=== PATIENT | female | born 1950 | race Caucasian/White ===

== ENCOUNTER 2023-04-25 13:49 | Inpatient (IN) | payer MEDICARE, SELFPAY ==
[2023-04-25 13:50] VITALS: BP 98/85; PULSE 87; RESP 18; TEMP 37.4; O2SAT 91; BMI 30.6
[2023-04-25 14:21] LABS: Absolute Lymphocyte Count 0.53 X10^3/uL (0.83-4.51); Absolute Neutrophil Count 10.1 X10^3/uL (2.0-7.7); Basophil# 0.02 X10^3/uL; Basophil% 0.2 % (0-1); Eosinophil# 0.09 X10^3/uL; Eosinophils% 0.8 % (0-5); Hematocrit 34.3 % (37-47); Hemoglobin 12.3 g/dL (12.0-15.0); Lymphocyte # 0.53 X10^3/ul (0.83-4.51); Lymphocyte % 4.7 % (19-41); Mean Corp Hgb Conc 35.9 g/dL (32-36); Mean Corpuscular Hgb 30.7 pg (27.0-32.0); Mean Corpuscular Volume 85.5 fL (81-99); Monocyte# 0.48 X10^3/uL; Monocyte% 4.3 % (0-10); NRBC Flagged by Analyzer 0 % (0-5); Neutrophil # 10.13 X10^3/uL (2.7-7.7); Neutrophil % 89.8 % (47-70); POSITIVE DIFFERENTIAL YES; Platelet Count 222 K/mm3 (150-450); RBC Distribution Width CV 14.8 % (11.6-14.6); RBC Distribution Width SD 46.2 fl (35.1-43.9); Red Blood Count 4.01 M/mm3 (4.2-5.4); White Blood Count 11.3 K/mm3 (4.4-11.0)
[2023-04-25 14:23] LABS: Differential Indicated SCAN CRITERIA MET
--- NOTE | 2023-04-25 14:23 | ED.VIS.GI ---
HPI HPI - GI History of Present Illness Chief Complaint: Abd Pain Narrative Narrative: 72-year-old female presenting with nausea, vomiting, abdominal pain. She states that 3 days ago she had a very fatty lobster bisque soup in the evening. She woke up the next day feeling nauseous and had some abdominal pain which she thought was more like her GERD. She does also note that she has had right upper quadrant pain. Patient states that yesterday she ate mostly fruit. She ate nothing fatty. She had nausea throughout the day. Today she is eaten nothing and continues to have pain. No diarrhea, constipation. No urinary or vaginal complaints. No fevers. [facility] Medical History (Updated 04/25/23 @ 14:32 by Jennifer Clark) Diabetes Hypertension Home Medications Lisinopril/Hydrochlorothiazide [Zestoretic 20/25 Tablet] 1 tab PO DAILY 10/27/13 [History Last Taken 10/26/13 08:00] pantoprazole 40 mg tablet,delayed release 40 mg PO BID ##60 10/29/13 [Rx Last Taken Unknown] metformin 500 mg tablet 500 mg PO BID #270 tabs 11/01/17 [Rx Last Taken Unknown] glimepiride 2 mg tablet 4 mg PO DAILY #180 tabs 01/21/18 [Rx Last Taken Unknown] amlodipine 2.5 mg tablet 2.5 mg PO DAILY 04/25/23 [History Last Taken Unknown] atorvastatin 10 mg tablet 10 mg PO DAILY 04/25/23 [History Last Taken Unknown] Allergy/AdvReac Type Severity Reaction Status Date / Time No Known Allergies Allergy Verified 04/25/23 13:50 Social History Smoking Status: Never smoker ROS [facility] ED Constitutional Constitutional ED: Denies chills, fever(s) or sweats Eyes Eyes: Denies blurry vision or change in vision ENT ENT ED: Denies ear pain or sore throat Cardiovascular Cardiovascular: Denies chest pain, palpitations or racing heartbeat Respiratory/Chest Respiratory/Chest: Denies cough, dyspnea or sputum Gastrointestinal Gastrointestinal: Reports abdominal pain, nausea and vomiting; Denies constipation or diarrhea Genitourinary Genitourinary ED: Denies dysuria, hematuria or urinary frequency Musculoskeletal Musculoskeletal: Denies arthralgias, myalgias or neck pain Integumentary Denies abscess, Abrasions or rash Neurologic Neurologic: Denies headache(s), paresthesias or weakness Psychiatric Psychiatric: Denies anxiety, depression, suicidal ideation or suicidal thoughts Endocrine Endocrinology: Denies polydipsia or polyuria EXAM Physical Exam Const Vital Signs: 04/25/23 13:50 04/25/23 15:49 04/25/23 17:16 Temperature 99.3 F H 98.1 F Temperature Source Temporal Oral Pulse Rate 87 91 Respiratory Rate 18 16 16 Blood Pressure 98/85 H 139/57 H 127/44 H Blood Pressure Mean 89 84 71 Pulse Ox 91 93 Oxygen Delivery Method Room Air Room Air Positive well nourished General Appearance ED: NAD HEENT Reports moist mucous membranes normocephalic and atraumatic Eyes PERRL and EOMs intact bilaterally Cardio regular rate and regular rhythm GI Palpation: tender RLQ Neuro CN's II-XII intact bilaterally, moves all extremities and no sensory deficits noted Sensorium / Orientation: alert, oriented to person, oriented to place and oriented to time Psych mental status grossly normal and thought process normal Skin no wounds MDM MDM MDM Narrative Medical decision making narrative: 72-year-old female with epigastric and right upper quadrant pain. Initially she indicated me that she had some left lower quadrant and right lower quadrant pain, however on examination she does not have any tenderness here. She has tenderness over the right upper quadrant has a positive Vallecillo sign. Differential includes but is not limited to GERD, gastritis, peptic ulcer disease, acute cholecystitis, acute cholelithiasis, diverticulitis, pancreatitis, perforated bowel, viral etiology, food poisoning. CBC to assess white blood cell count, hemoglobin, platelets, differential. CMP to assess liver function, renal function, electrolytes, glucose, anion gap. Lipase to assess for pancreatitis. Urinalysis to assess for UTI. Clinically I am concerned for her gallbladder. We will get a right upper quadrant ultrasound. Patient medicated with morphine, Zofran, 1 L of normal saline. CBC shows a slight leukocytosis at 11.3. There is a left shift of 89.8. Hemoglobin macular stable. Platelets are normal. Creatinine slightly elevated 1.29. Patient was given IV fluids. Electrolytes within normal limits.LFTs show total bilirubin of 4.3, direct bilirubin 2.92, indirect bilirubin 1.4, AST 118, ALT 64, alkaline phosphatase normal at 96. CRP elevated minimally at 8.11. ESR 8. Gallbladder ultrasound shows gallstones distended gallbladder and slight pericholecystic edema.Distended gallbladder with gallstones and slight pericholecystic edema. There is also mild gallbladder wall thickening.Discussed case with Dr. Hankins who recommended speaking to Dr. Moscoso given that she thought he might need to do ERCP. After speaking with him he recommended an MRCP and will see her in consult. Patient will be covered with Zosyn. Discussed with Dr. Yi for admission. Impression: 1. Cholelithiasis 2. Transaminitis 3. Nausea ? Lab Data Labs: Laboratory Results - last 24 hr 04/25/23 04/25/23 04/25/23 14:15 14:15 14:15 WBC 11.3 H RBC 4.01 L Hgb 12.3 Hct 34.3 L MCV 85.5 MCH 30.7 MCHC 35.9 RDW Std Deviation 46.2 H RDW Coeff of [place] 14.8 H Plt Count 222 MPV 9.0 Immature Gran % (Auto) 0.200 Neut % (Auto) 89.8 H Lymph % (Auto) 4.7 L [place] % (Auto) 4.3 Eos % (Auto) 0.8 Baso % (Auto) 0.2 Absolute Neuts (auto) 10.1 H Absolute Lymphs (auto) 0.53 L Nucleated RBC % 0 ESR Sodium 137 Potassium 3.8 Chloride 101 Carbon Dioxide 27.0 Anion Gap 9 BUN 16 Creatinine 1.29 H Estim Creat Clear Calc 32.61 Est GFR (MDRD) Af Amer 52 L Est GFR (MDRD) Non-Af 43 L BUN/Creatinine Ratio 12.4 Glucose 264 H Calcium 8.9 Total Bilirubin 4.40 H 4.30 H Direct Bilirubin 2.92 H Indirect Bilirubin 1.40 H AST 118 H ALT 64 H Alkaline Phosphatase 96 C-React Prot Ext Range 8.11 H Total Protein 7.4 Albumin 4.0 Globulin 3.4 Albumin/Globulin Ratio 1.2 Lipase 54 Urine Color Urine Clarity Urine pH Ur Specific [place] Urine Protein Urine Glucose (UA) Urine Ketones Urine Occult Blood Urine Nitrite Urine Bilirubin Urine Urobilinogen Ur Leukocyte Esterase Urine RBC Urine WBC Ur Squamous Epith Cells Urine Bacteria Urine Mucus 04/25/23 04/25/23 14:15 15:46 WBC RBC Hgb Hct MCV MCH MCHC RDW Std Deviation RDW Coeff of [place] Plt Count MPV Immature Gran % (Auto) Neut % (Auto) Lymph % (Auto) [place] % (Auto) Eos % (Auto) Baso % (Auto) Absolute Neuts (auto) Absolute Lymphs (auto) Nucleated RBC % ESR 8 Sodium Potassium Chloride Carbon Dioxide Anion Gap BUN Creatinine Estim Creat Clear Calc Est GFR (MDRD) Af Amer Est GFR (MDRD) Non-Af BUN/Creatinine Ratio Glucose Calcium Total Bilirubin Direct Bilirubin Indirect Bilirubin AST ALT Alkaline Phosphatase C-React Prot Ext Range Total Protein Albumin Globulin Albumin/Globulin Ratio Lipase Urine Color Yellow Urine Clarity Sl. Cloudy Urine pH 6.0 Ur Specific [place] 1.015 Urine Protein 30 H Urine Glucose (UA) 250 H Urine Ketones 15 H Urine Occult Blood 50 H Urine Nitrite Negative Urine Bilirubin 1 H Urine Urobilinogen 8 H Ur Leukocyte Esterase 500 H Urine RBC 0-5 SEEN Urine WBC 10-25 SEEN Ur Squamous Epith Cells 0-5 SEEN Urine Bacteria 1+ Urine Mucus 0 SEEN Radiography Diagnostic Testing: Clinical Impression(s) from Imaging Studies Gallbladder Ultrasound 04/25/23 14:45 IMPRESSION: Distended gallbladder with gallstones and slight pericholecystic edema. Mild gallbladder wall thickening. No localized tenderness. Electronically Signed: Oliverio Melvin MD at 17:23 EDT , Discharge Plan Triage Chief Complaint: Abd Pain ED Provider: Junior Contreras Dx/Rx/DC Orders Prescriptions: No Action Lisinopril/Hydrochlorothiazide [Zestoretic 20/25 Tablet] 1 TABLET tablet 1 tab PO DAILY Label Comments: HYPERTENSION pantoprazole 40 MG tablet 40 mg PO BID Qty: 60 0RF atorvastatin 10 mg tablet 10 mg PO DAILY Label Comments: TAKE 1 TABLET BY MOUTH ONCE DAILY AT BEDTIME FOR CHOLESTEROL LOWERING. amlodipine 2.5 mg tablet 2.5 mg PO DAILY Label Comments: TAKE 1 TABLET BY MOUTH ONCE DAILY metformin 500 mg tablet 500 mg PO BID Qty: 270 3RF Rx Instructions: take 2 tabs with breakfast, 1 tab with supper glimepiride 2 MG tablet 4 mg PO DAILY Qty: 180 4RF Primary Care Provider: Dejon Lara Referrals: Dejon Lara DO [Primary Care Provider] -
[2023-04-25] MEDS: Morphine 4 MG/ML Syringe IV (14:28)
[2023-04-25] MEDS: 0.9% Normal Saline 1,000 ML 999 ML IV (14:28)
[2023-04-25] MEDS: Ondansetron 4 MG/2 ML Vial IV (14:29)
[2023-04-25 14:39] LABS: ALB/GLOB Ratio 1.2 RATIO (0.9-2.4); AST(SGOT) 118 U/L (15-37); Alanine Aminotransfer ALT/SGPT 64 U/L (13-56); Alkaline Phosphatase 96 U/L (45-117); Anion Gap 9 (5-15); BUN 16 mg/dL (7-18); BUN/Creat Ratio 12.4 RATIO (10-20); Calcium,Total 8.9 mg/dL (8.5-10.1); Chloride 101 mmol/L (98-107); Creatinine, Serum 1.29 mg/dL (0.55-1.02); EST Glomerular Filtration Rate 43 mL/min (>60); Est Glom Filt Rate - Afr Amer 52 mL/min (>60); Estimated Creatinine Clearance 32.61 ml/min; Globulin 3.4 g/dL (2.2-4.2); Glucose 264 mg/dL (74-106); Lipase 54 U/L (13-75); Potassium 3.8 mmol/L (3.5-5.1); Protein, Total 7.4 g/dL (6.4-8.2); Sodium Level 137 mmol/L (136-145)
--- NOTE | 2023-04-25 14:45 | US_ITS ---
STUDY: ABDOMINAL ULTRASOUND - RIGHT UPPER QUADRANT REASON FOR VISIT: Female, 72 years old ruq pain TECHNIQUE: Ultrasound evaluation of the right upper quadrant was performed with real-time and static hernandez-scale imaging. TECHNICAL QUALITY: Adequate. COMPARISON: 10/27/2013. FINDINGS: Liver: The liver measures 16.9 cm. There is increased echogenicity consistent with fatty infiltration. The bile ducts are within normal limits. There is hepatic color flow. The direction of portal flow is hepatopetal. There is no demonstrated mass lesion. Gallbladder: There is a markedly distended gallbladder. The gallbladder wall measures 3 mm. There is a negative sonographic Vallecillo''s sign. There is pericholecystic fluid. There are multiple echogenic structures within the gallbladder, consistent with multiple gallstones. Common Bile Duct (C.B.D.): The common bile duct measures 5.5 mm. Pancreas: Normal size of the head, body and tail of the pancreas. There is normal echogenicity of the pancreas. There is no demonstrated pancreatic mass or cyst. Right Kidney: Normal size of the right kidney. The right kidney measures 11.8 cm. Normal renal cortex. The right cortex measures 1.1 cm. There is a 1.4 cm cyst. There is no right hydronephrosis. US/Gallbladder IMPRESSION: Distended gallbladder with gallstones and slight pericholecystic edema. Mild gallbladder wall thickening. No localized tenderness. Electronically Signed: Oliverio Melvin MD at 17:23 EDT ,
[2023-04-25 15:49] VITALS: BP 139/57; RESP 16
[2023-04-25 15:54] LABS: Mucous, Urine 0 SEEN /hpf (<or=2+)
[2023-04-25 16:04] LABS: Color, Urine Yellow (Yellow); Glucose, Dipstick 250 mg/dl (Normal); Ketone-Dipstick 15 mg/dl (Negative); Leukocyte Esterase-Dipstick 500 /ul (Negative); Nitrite-Dipstick Negative (Negative); Occult Blood-Urine 50 /ul (Negative); Protein-Dipstick 30 mg/dl (Negative); Specific Gravity, Urine 1.015 (1.002-1.030); Urine Clarity Sl. Cloudy (Clear); Urine Urobilinogen 8 mg/dl (Normal)
[2023-04-25 16:10] LABS: Urine Bilirubin Dipstick 1 mg/dL (Negative)
[2023-04-25 16:12] LABS: Bacteria 1+ /hpf (None Seen); Red Blood Cells-Urine 0-5 SEEN /hpf (0-5); Squamous Epithelial Cells - UA 0-5 SEEN /hpf (5-10); White Blood Cells 10-25 SEEN /hpf (0-5)
[2023-04-25 17:16] VITALS: BP 127/44; PULSE 91; RESP 16; TEMP 36.7; O2SAT 93
[2023-04-25 18:17] LABS: Erythrocyte Sedimentation Rate 8 mm/hr (0-30)
[2023-04-25 18:19] LABS: Bilirubin, Direct 2.92 mg/dL (0.00-0.30); CRP 8.11 mg/L (0.0-3.0)
--- NOTE | 2023-04-25 18:34 | CON.PCM.GI_ITS ---
HPI Consult Data Date of Consult: 04/25/23 HPI Narrative Reason for Consultation: Abnormal LFTs HPI Narrative: MARU LEE, is a 72 F who presents with nausea, vomiting, abdominal pain.? She has a past story of hypertension, hyperlipidemia, diabetes with neuropathy and retinopath. She states that 3 days ago she had a very fatty lobster bisque soup in the evening.? She woke up the next day feeling nauseous and had some abdominal pain which she thought was more like her GERD.? She does also note that she has had right upper quadrant pain.? Patient states that yesterday she ate mostly fruit.? She ate nothing fatty.? She had nausea throughout the day.? Today she is eaten nothing and continues to have pain.? No diarrhea, constipation.? No urinary or vaginal complaints.? No fevers. She actually has lost weight due to inability to eat a full meal because she has been getting full faster. She denies any heartburn, chest pain, shortness of breath or esophageal dysphagia. Laboratory analysis in the ED displayed: WBC 11.3 H, , Total Bilirubin 4.40 H, AST 118 H, ALT 64 H, Alkaline Phosphatase 96, Total Protein 7.4, Albumin 4.0, Globulin 3.4, Albumin/Globulin Ratio 1.2, Lipase 54 04/25/23 14:15: Total Bilirubin 4.30 H, Direct Bilirubin 2.92 H, Indirect Bilirubin 1.40 H, C-React Prot Ext Range 8.11 H Ultrasound displayed: Distended gallbladder with gallstones and slight pericholecystic edema. Mild gallbladder wall thickening. No localized tenderness. [facility] Medical History (Updated 04/25/23 @ 18:[address] Urrutia Friend, DO) Diabetes Hypertension Home Medications Lisinopril/Hydrochlorothiazide [Zestoretic 20/25 Tablet] 1 tab PO DAILY 10/27/13 [History Last Taken 10/26/13 08:00] pantoprazole 40 mg tablet,delayed release 40 mg PO BID ##60 10/29/13 [Rx Last Taken Unknown] metformin 500 mg tablet 500 mg PO BID #270 tabs 11/01/17 [Rx Last Taken Unknown] glimepiride 2 mg tablet 4 mg PO DAILY #180 tabs 01/21/18 [Rx Last Taken Unknown] amlodipine 2.5 mg tablet 2.5 mg PO DAILY 04/25/23 [History Last Taken Unknown] atorvastatin 10 mg tablet 10 mg PO DAILY 04/25/23 [History Last Taken Unknown] Allergy/AdvReac Type Severity Reaction Status Date / Time No Known Allergies Allergy Verified 04/25/23 13:50 Social History Smoking Status: Never smoker alcohol intake: never ROS Review of Systems ROS Unobtainable: other Constitutional Constitutional: Denies fatigue, fever(s), poor appetite, weight gain or weight loss ENT HEENT: Denies mouth lesions Cardiovascular Cardiovascular: Denies abdominal bloating, abdominal edema or abdominal pain Respiratory/Chest Respiratory/Chest: Denies change in mental status, change in phlegm color, chest congestion or chest tightness Gastrointestinal Gastrointestinal: Denies belching, bloating, change in bowel habits, change in stool character, chewing difficulty, coffee ground emesis, constipation, cramping, diarrhea, dyspepsia, dysphagia, early satiety, excessive flatus, fecal incontinence, heartburn, hematemesis, hematochezia, hemorrhoids, loose stools, melena, nausea, odynophagia, rectal bleeding, tenesmus, vomiting or weight c hanges Genitourinary Genitourinary: Denies abdominal discomfort, burning urination or itching Musculoskeletal Musculoskeletal: Reports as per HPI; Denies muscle weakness or myalgias Integumentary Integumentary: Denies jaundice Neurologic Neurologic: Denies lack of coordination or weakness Psychiatric Psychiatric: Denies confusion, depression, memory loss, mood swings, paranoia or suicidal ideation Endocrine Endocrinology: Denies systems reviewed and no addt'l complaints, except as documented Hematologic/Lymphatic Hematologic/Lymphatic: Denies anemia, easy bleeding, easy bruising or lymphadenopathy Allergic/Immunologic Allergic/Immunologic: Denies systems reviewed and no addt'l complaints, except as documented Physical Exam Const alert, oriented x3, no apparent distress, healthy appearing and well nourished General Appearance: cooperative, comfortable, well kempt and well developed Orientation / Consciousness: awake and oriented to person HEENT Head and Scalp: normocephalic and atraumatic Face and Sinus: normal facial exam Mouth: oral and palatal mucosa normal Eyes General Eye: normal appearance of both eyes Neck full ROM Lymph Lymphatic: no lymphadenopathy noted Chest inspection of chest normal Resp normal respiratory effort and no use of accessory muscles Cardio regular rate and regular rhythm GI normal to inspection, nondistended, normoactive bowel sounds, soft to palpation, non-tender, non-distended and no masses Auscultation: normoactive bowel sounds Palpation: soft Percussion: normal to percussion Rectal Exam: visual inspection normal and normal sphincter tone no CVA tenderness Back/Spine no CVA tenderness and normal ROM Extremity normal to inspection Peripheral Pulses: Yes pulses 2+ throughout Skin no rashes or lesions noted General Skin Exam: no breakdown, elasticity normal and turgor normal Neuro oriented x3 Motor Exam: strength 5/5 throughout Psych mental status grossly normal Appearance: grossly normal Attitude: calm Activity / Motor Behavior: appropriate eye contact Speech: normal speech Thought Process: normal thought process Thought Content: normal thought content Attention / Concentration: attention grossly intact Memory / Cognition: memory grossly intact Insight: insight good Judgement: judgement good Lab / Micro Data Result Diagrams: 04/25/23 14:15 04/25/23 14:15 Labs: Laboratory Results - last 24 hr 04/25/23 14:15: WBC 11.3 H, RBC 4.01 L, Hgb 12.3, Hct 34.3 L, MCV 85.5, MCH 30.7, MCHC 35.9, RDW Std Deviation 46.2 H, RDW Coeff of [place] 14.8 H, Plt Count 222, MPV 9.0, Immature Gran % (Auto) 0.200, Neut % (Auto) 89.8 H, Lymph % (Auto) 4.7 L, [place] % (Auto) 4.3, Eos % (Auto) 0.8, Baso % (Auto) 0.2, Absolute Neuts (auto) 10.1 H, Absolute Lymphs (auto) 0.53 L, Nucleated RBC % 0 04/25/23 14:15: Sodium 137, Potassium 3.8, Chloride 101, Carbon Dioxide 27.0, Anion Gap 9, BUN 16, Creatinine 1.29 H, Estim Creat Clear Calc 32.61, Est GFR (MDRD) Af Amer 52 L, Est GFR (MDRD) Non-Af 43 L, BUN/Creatinine Ratio 12.4, Glucose 264 H, Calcium 8.9, Total Bilirubin 4.40 H, AST 118 H, ALT 64 H, Alkaline Phosphatase 96, Total Protein 7.4, Albumin 4.0, Globulin 3.4, Albumin/Globulin Ratio 1.2, Lipase 54 04/25/23 14:15: Total Bilirubin 4.30 H, Direct Bilirubin 2.92 H, Indirect Bilirubin 1.40 H, C-React Prot Ext Range 8.11 H 04/25/23 14:15: ESR 8 04/25/23 15:46: Urine Color Yellow, Urine Clarity Sl. Cloudy, Urine pH 6.0, Ur Specific [place] 1.015, Urine Protein 30 H, Urine Glucose (UA) 250 H, Urine Ketones 15 H, Urine Occult Blood 50 H, Urine Nitrite Negative, Urine Bilirubin 1 H, Urine Urobilinogen 8 H, Ur Leukocyte Esterase 500 H, Urine RBC 0-5 SEEN, Urine WBC 10-25 SEEN, Ur Squamous Epith Cells 0-5 SEEN, Urine Bacteria 1+, Urine Mucus 0 SEEN Radiology Impression Gallbladder Ultrasound 04/25/23 14:45 IMPRESSION: Distended gallbladder with gallstones and slight pericholecystic edema. Mild gallbladder wall thickening. No localized tenderness. Electronically Signed: Oliverio Melvin MD at 17:23 EDT , Assessment & Plan Assessment/Plan (1) Abdominal pain: PLAN: Differential diagnosis for abdominal pain does include cholecystitis given that the ultrasound did show gallbladder wall thickening and some mild pericholecystic fluid in the setting of persistent abdominal pain that last for over 12 hours. Also in the differential diagnosis would include gastroparesis because she has been getting full fast. Less likely is a possibility of sphincter of Oddi disorder due to the fact that her common bile duct diameter was only 5.5 mm and her alkaline phosphatase was normal. She is being seen by surgery and she will get an MRCP so we can have further evaluation of her hepatobiliary system. I do not think she needs an ERCP at this time (2) Elevated liver enzymes: PLAN: Differential diagnosis for elevated liver enzymes will be a local effect due to the closeness of the gallbladder to the liver itself. I am leaning more towards acute liver injury due to just to gallbladder being adjacent to the liver. Her alkaline phosphatase is normal. Of the etiology would be autoimmune hepatitis, less likely Jeane-Ricks virus or viral hepatitis. She is completely asymptomatic at this time with 1 dose of morphine and 1 dose of Zofran. Await the MRCP and I will check some autoimmune labs and viral labs. Charges/Coding Visit Charges Inpatient E&M: 90674 Init Hosp L3
--- NOTE | 2023-04-25 18:40 | HP.PCM.HOS_ITS ---
[facility] - General General Date of Service: 04/25/23 Chief Complaint: abdominal pain HPI Narrative MARU LEE, is a 72 F who presents with abdominal pain. Patient describes abdominal pain across her upper abdomen and lower chest. Had associated vomiting. Patient has had similar but less severe episodes in the past where she will have some abdominal pain and then she will throw up and feel better and then may recur again. This was different as did not improve after she vomited. Patient presented to the emergency room and had lab work that showed her total b ilirubin was 4.3, direct bilirubin 2.9, AST 118, ALT 64. Ultrasound of her abdomen showed distended gallbladder with gallstones and slight pericholecystic edema. Mild gallbladder wall thickening. No localized tenderness. Currently, since patient has been hospitalized she has been feeling fine. [facility] Medical History Diabetes Hypertension Home Medications Lisinopril/Hydrochlorothiazide [Zestoretic 20/25 Tablet] 1 tab PO DAILY 10/27/13 [History Last Taken 10/26/13 08:00] pantoprazole 40 mg tablet,delayed release 40 mg PO BID ##60 10/29/13 [Rx Last Taken Unknown] metformin 500 mg tablet 500 mg PO BID #270 tabs 11/01/17 [Rx Last Taken Unknown] glimepiride 2 mg tablet 4 mg PO DAILY #180 tabs 01/21/18 [Rx Last Taken Unknown] amlodipine 2.5 mg tablet 2.5 mg PO DAILY 04/25/23 [History Last Taken Unknown] atorvastatin 10 mg tablet 10 mg PO DAILY 04/25/23 [History Last Taken Unknown] Allergy/AdvReac Type Severity Reaction Status Date / Time No Known Allergies Allergy Verified 04/25/23 13:50 no significant family history Social History (Updated 04/25/23 @ 18:[address] Siddhartha Yi DO) Smoking Status: Never smoker alcohol intake: never ROS ROS Narrative Patient denies any jaundice nor icterus. All review of systems were negative except as mentioned above in the history of present illness and the other review of systems. Vital Signs Vital Signs Vital Signs: 04/25/23 13:50 04/25/23 15:49 04/25/23 17:16 Temperature 37.4 C H 36.7 C Temperature Source Temporal Oral Pulse Rate 87 91 Respiratory Rate 18 16 16 Blood Pressure 98/85 H 139/57 H 127/44 H Blood Pressure Mean 89 84 71 Pulse Ox 91 93 Oxygen Delivery Method Room Air Room Air Weight Weight: 78.471 kg Body Mass Index (BMI) 30.6 Physical Exam Const alert and no apparent distress HEENT normocephalic and head/scalp atraumatic Eyes conjunctivae normal Eyes Narrative: No icterus Neck no lymphadenopathy Resp normal respiratory effort, no retractions, no use of accessory muscles and clear to auscultation bilaterally Cardio regular rate, regular rhythm, S1 normal heart sound and S2 normal heart sound GI normal to inspection, nondistended, normoactive bowel sounds, soft to palpation, non-tender and non-distended GI Narrative: Negative Vallecillo sign Extremity normal to inspection Neuro oriented x3 and CN's II-XII intact bilaterally Psych affect normal Results Lab / Micro Data Attestation: I reviewed the patient's lab results. Result Diagrams: 04/25/23 14:15 04/25/23 14:15 Labs: Laboratory Results - last 24 hr 04/25/23 14:15: WBC 11.3 H, RBC 4.01 L, Hgb 12.3, Hct 34.3 L, MCV 85.5, MCH 30.7, MCHC 35.9, RDW Std Deviation 46.2 H, RDW Coeff of [place] 14.8 H, Plt Count 222, MPV 9.0, Immature Gran % (Auto) 0.200, Neut % (Auto) 89.8 H, Lymph % (Auto) 4.7 L, [place] % (Auto) 4.3, Eos % (Auto) 0.8, Baso % (Auto) 0.2, Absolute Neuts (auto) 10.1 H, Absolute Lymphs (auto) 0.53 L, Nucleated RBC % 0 04/25/23 14:15: Sodium 137, Potassium 3.8, Chloride 101, Carbon Dioxide 27.0, Anion Gap 9, BUN 16, Creatinine 1.29 H, Estim Creat Clear Calc 32.61, Est GFR (MDRD) Af Amer 52 L, Est GFR (MDRD) Non-Af 43 L, BUN/Creatinine Ratio 12.4, Glucose 264 H, Calcium 8.9, Total Bilirubin 4.40 H, AST 118 H, ALT 64 H, Alkaline Phosphatase 96, Total Protein 7.4, Albumin 4.0, Globulin 3.4, Albumin/Globulin Ratio 1.2, Lipase 54 04/25/23 14:15: Total Bilirubin 4.30 H, Direct Bilirubin 2.92 H, Indirect Bilirubin 1.40 H, C-React Prot Ext Range 8.11 H 04/25/23 14:15: ESR 8 04/25/23 15:46: Urine Color Yellow, Urine Clarity Sl. Cloudy, Urine pH 6.0, Ur Specific [place] 1.015, Urine Protein 30 H, Urine Glucose (UA) 250 H, Urine Ketones 15 H, Urine Occult Blood 50 H, Urine Nitrite Negative, Urine Bilirubin 1 H, Urine Urobilinogen 8 H, Ur Leukocyte Esterase 500 H, Urine RBC 0-5 SEEN, Urine WBC 10-25 SEEN, Ur Squamous Epith Cells 0-5 SEEN, Urine Bacteria 1+, Urine Mucus 0 SEEN Radiology Impression Gallbladder Ultrasound 04/25/23 14:45 IMPRESSION: Distended gallbladder with gallstones and slight pericholecystic edema. Mild gallbladder wall thickening. No localized tenderness. Electronically Signed: Oliverio Melvin MD at 17:23 EDT , Assessment & Plan Assessment/Plan (1) Cholecystitis: (2) Elevated liver enzymes: PLAN: Plan 1. Acute cholecystitis * Concerning based on the ultrasound. Currently patient is feeling fine right now * Will start Pipracil and/tazobactam * Monitor LFTs * Consult general surgery 2. Suspected resolved choledocholithiasis * Patient had severe abdominal pain as well as elevated bilirubin. I suspect patient may have passed a gallstone * MRCP has been ordered such * Consult gastroenterology 3. Diabetes mellitus type 2: * [id number] * Hold metformin and glimepiride * Sliding-scale insulin for now 4. Hypertension: * Stable * Continue with amlodipine and lisinopril/HCTZ 5. GERD * Patient had some similar but less severe bouts of abdominal pain with vomiting. Unclear if this is related with GERD or not. * Continue PPI 6. VTE prophylaxis with SCDs.
[2023-04-25 18:41] VITALS: BP 100/47; PULSE 88; RESP 16; TEMP 36.9; O2SAT 98
[2023-04-25 19:22] VITALS: BMI 30.6
--- NOTE | 2023-04-25 19:30 | MRI_ITS ---
STUDY: MR CHOLANGIOPANCREATOGRAPHY (MRCP) REASON FOR EXAM: Female, 72 years old. Hyperbilirubinemia, upper abdominal pain TECHNIQUE: Standard MRCP technique was utilized. Three-dimensional reconstruction images performed of the biliary system at an independent workstation and reviewed at time of dictation. COMPARISON: Ultrasound 04/25/2023 FINDINGS: MRCP: Gall Bladder: Slight gallbladder wall thickening with multiple gallstones. There is minimal pericholecystic fluid as seen on ultrasound from yesterday. Cystic duct: Normal with no demonstrated fixed filling defect. Intrahepatic ducts: Mild intrahepatic bile duct dilation affecting the right more than left bile ducts. Common hepatic duct: Normal with no demonstrated fixed filling defect, dilation or stricture. Common hepatic duct measures 8.1 mm. Common bile duct: Round filling defect in the lower common duct measures 10.4 mm on image 15 of series 8, 1.9 cm above the ampulla. Common duct measures 12.8 mm. Pancreatic duct: Normal with no demonstrated fixed filling defect, dilation or stricture. MRI/MRCP Abdomen without Contrast IMPRESSION: 1. Choledocholithiasis of the lower common duct. Extrahepatic more than intrahepatic bile duct dilation. 2. Cholelithiasis with slight gallbladder wall thickening and pericholecystic fluid. Electronically Signed: Roney Harper (Brooks), at 10:37 EDT ,
[2023-04-25 19:45] VITALS: BP 122/56; PULSE 86; RESP 16; TEMP 36.8; O2SAT 100
[2023-04-25] MEDS: 0.9% Normal Saline 1,000 ML 125 ML IV (20:10)
[2023-04-25] MEDS: MELATONIN 3 MG TABLET PO (21:51)
[2023-04-25] MEDS: Pantoprazole Sodium 40 MG Tablet PO (21:51)
[2023-04-25] MEDS: Acetaminophen 500 MG Tablet 1000 MG PO (21:51)
[2023-04-25 22:13] LABS: Bedside Glucose 232 mg/dL (74-106)
[2023-04-25] MEDS: Insulin Lispro 100 UNIT/ML INSULN.PEN SC (22:41)
--- NOTE | 2023-04-25 22:55 | CON.PCM.SX_ITS ---
Assessment & Plan Assessment/Plan (1) Elevated liver enzymes: (2) Acute cholecystitis: PLAN: Plan Await MRCP results. If no evidence of choledocho- will proceed with lap tammy tomorrow. Reviewed the anatomy with the patient and discussed the procedure: laparoscopic cholecystectomy with cholangiograms, possible open. Review risks including but not limited to bleeding, infection, hernia, bile leak, retained gallstones requiring another procedure ERCP- Endoscopic Retrograde Cholangiopancreatography, injury to another organ (bile ducts, common bile duct, small bowel, etc.) and conversion to an open procedure. All questions were answered. Jess Hankins M.D. Pager: [phone] [facility] [address] [place] [address], Outpatient [place], [address] [place] [address] Office: [phone] HPI Consult Data Date of Consult: 04/26/23 HPI Narrative Reason for Consultation: cholelithiasis and cholecystitis HPI Narrative: MARU LEE, is a 72 F who presents to ER due to Ruq/epigastric pain starting this AM- pt state it was after eating lobster bisque soap unsure what time or how long after eating. US showed wall 3mm, pericholecystic fluid, cholelithiasis, neg soriano's. Pt denies hx of ruq pain after eating. Patient currently denies any abdominal pain. Pt bili was elevated with AST/ALT, but n ormal alk phos. GI has seen pt and ordered MRCP. Patient denies any prolonged alcohol use states she only occasionally has a glass of wine every several months. [facility] Medical History Diabetes Hypertension Home Medications Lisinopril/Hydrochlorothiazide [Zestoretic 20/25 Tablet] 1 tab PO DAILY 10/27/13 [History Last Taken 10/26/13 08:00] pantoprazole 40 mg tablet,delayed release 40 mg PO BID ##60 10/29/13 [Rx Last Taken Unknown] metformin 500 mg tablet 500 mg PO BID #270 tabs 11/01/17 [Rx Last Taken Unknown] glimepiride 2 mg tablet 4 mg PO DAILY #180 tabs 01/21/18 [Rx Last Taken Unknown] amlodipine 2.5 mg tablet 2.5 mg PO DAILY 04/25/23 [History Last Taken Unknown] atorvastatin 10 mg tablet 10 mg PO DAILY 04/25/23 [History Last Taken Unknown] Allergy/AdvReac Type Severity Reaction Status Date / Time No Known Allergies Allergy Verified 04/25/23 13:50 Family History no significant family his Social History (Updated 04/25/23 @ 18:[address] Siddhartha Yi, DO) Smoking Status: Never smoker alcohol intake: never ROS Constitutional Constitutional: Denies fever(s) Eyes Eyes: Denies loss of central vision ENT HEENT: Denies dysphagia Cardiovascular Cardiovascular: Denies dyspnea or palpitations Respiratory/Chest Respiratory/Chest: Denies productive cough Gastrointestinal Gastrointestinal: Reports abdominal pain and nausea; Denies constipation Genitourinary Genitourinary: Denies dysuria Musculoskeletal Musculoskeletal: Denies joint swelling Integumentary Integumentary: Denies rash Neurologic Neurologic: Denies tingling Hematologic/Lymphatic Hematologic/Lymphatic: Denies easy bleeding Physical Exam Const alert, oriented x3 and no apparent distress HEENT normocephalic and head/scalp atraumatic Resp normal respiratory effort Cardio regular rate GI soft to palpation; Negative for non-distended Palpation: tender RUQ (Mild on deep palpation, no peritoneal signs); Negative for guarding Extremity no clubbing, cyanosis or edema Neuro CN's II-XII intact bilaterally Psych mental status grossly normal Lab / Micro Data Result Diagrams: 04/26/23 05:25 04/26/23 05:25 Labs: Laboratory Results - last 24 hr 04/25/23 14:15: WBC 11.3 H, RBC 4.01 L, Hgb 12.3, Hct 34.3 L, MCV 85.5, MCH 30.7, MCHC 35.9, RDW Std Deviation 46.2 H, RDW Coeff of [place] 14.8 H, Plt Count 222, MPV 9.0, Immature Gran % (Auto) 0.200, Neut % (Auto) 89.8 H, Lymph % (Auto) 4.7 L, [place] % (Auto) 4.3, Eos % (Auto) 0.8, Baso % (Auto) 0.2, Absolute Neuts (auto) 10.1 H, Absolute Lymphs (auto) 0.53 L, Nucleated RBC % 0 04/25/23 14:15: Sodium 137, Potassium 3.8, Chloride 101, Carbon Dioxide 27.0, Anion Gap 9, BUN 16, Creatinine 1.29 H, Estim Creat Clear Calc 32.61, Est GFR (MDRD) Af Amer 52 L, Est GFR (MDRD) Non-Af 43 L, BUN/Creatinine Ratio 12.4, Glucose 264 H, Calcium 8.9, Total Bilirubin 4.40 H, AST 118 H, ALT 64 H, Alkaline Phosphatase 96, Total Protein 7.4, Albumin 4.0, Globulin 3.4, Albumin/Globulin Ratio 1.2, Lipase 54 04/25/23 14:15: Total Bilirubin 4.30 H, Direct Bilirubin 2.92 H, Indirect Bilirubin 1.40 H, C-React Prot Ext Range 8.11 H 04/25/23 14:15: ESR 8 04/25/23 15:46: Urine Color Yellow, Urine Clarity Sl. Cloudy, Urine pH 6.0, Ur Specific [place] 1.015, Urine Protein 30 H, Urine Glucose (UA) 250 H, Urine Ketones 15 H, Urine Occult Blood 50 H, Urine Nitrite Negative, Urine Bilirubin 1 H, Urine Urobilinogen 8 H, Ur Leukocyte Esterase 500 H, Urine RBC 0-5 SEEN, Urine WBC 10-25 SEEN, Ur Squamous Epith Cells 0-5 SEEN, Urine Bacteria 1+, Urine Mucus 0 SEEN 04/25/23 21:53: POC Glucose 232 H Radiology Impression Gallbladder Ultrasound 04/25/23 14:45 IMPRESSION: Distended gallbladder with gallstones and slight pericholecystic edema. Mild gallbladder wall thickening. No localized tenderness. Electronically Signed: Oliverio Melvin MD at 17:23 EDT , Charges/Coding Visit Charges Inpatient E&M: 81923 Init Hosp L3
[2023-04-26] VITALS (9 sets, daily range): BP systolic 116–157; BP diastolic 48–72; PULSE 72–103; RESP 16–20; TEMP 36.2–37.1; O2SAT 97–100; BMI 30.6
[2023-04-26] MEDS: 0.9% Normal Saline 1,000 ML 125 ML IV ×2 (03:56→13:30)
[2023-04-26 05:55] LABS: Absolute Lymphocyte Count 0.54 X10^3/uL (0.83-4.51); Absolute Neutrophil Count 5.5 X10^3/uL (2.0-7.7); Basophil# 0.02 X10^3/uL; Basophil% 0.3 % (0-1); Eosinophil# 0.06 X10^3/uL; Eosinophils% 0.9 % (0-5); Hematocrit 28.3 % (37-47); Hemoglobin 9.8 g/dL (12.0-15.0); Lymphocyte # 0.54 X10^3/ul (0.83-4.51); Lymphocyte % 8.1 % (19-41); Mean Corp Hgb Conc 34.6 g/dL (32-36); Mean Corpuscular Hgb 30.8 pg (27.0-32.0); Monocyte# 0.53 X10^3/uL; NRBC Flagged by Analyzer 0 % (0-5); Neutrophil # 5.46 X10^3/uL (2.7-7.7); Neutrophil % 82.4 % (47-70); POSITIVE DIFFERENTIAL YES; Platelet Count 186 K/mm3 (150-450); RBC Distribution Width CV 14.9 % (11.6-14.6); RBC Distribution Width SD 47.8 fl (35.1-43.9); Red Blood Count 3.18 M/mm3 (4.2-5.4); White Blood Count 6.6 K/mm3 (4.4-11.0)
[2023-04-26 06:04] LABS: Differential Indicated SCAN CRITERIA MET
[2023-04-26] MEDS: Acetaminophen 500 MG Tablet 1000 MG PO ×2 (06:07→20:53)
[2023-04-26 06:24] LABS: Bedside Glucose 116 mg/dL (74-106)
[2023-04-26 06:26] LABS: Differential Comment SCANNED
[2023-04-26 06:33] LABS: ALB/GLOB Ratio 1.1 RATIO (0.9-2.4); AST(SGOT) 209 U/L (15-37); Alanine Aminotransfer ALT/SGPT 165 U/L (13-56); Alkaline Phosphatase 83 U/L (45-117); Anion Gap 6 (5-15); BUN 18 mg/dL (7-18); BUN/Creat Ratio 11.8 RATIO (10-20); Calcium,Total 8.1 mg/dL (8.5-10.1); Chloride 107 mmol/L (98-107); Creatinine, Serum 1.53 mg/dL (0.55-1.02); EST Glomerular Filtration Rate 35 mL/min (>60); Est Glom Filt Rate - Afr Amer 43 mL/min (>60); Estimated Creatinine Clearance 27.49 ml/min; Globulin 2.8 g/dL (2.2-4.2); Glucose 124 mg/dL (74-106); Potassium 3.4 mmol/L (3.5-5.1); Protein, Total 5.8 g/dL (6.4-8.2); Sodium Level 141 mmol/L (136-145)
--- NOTE | 2023-04-26 07:24 | PCM.PN.HOSP ---
Reason for Visit Reason for Visit: Abdominal pain Subjective Subjective Mrs. Woodward is a 72-year-old white female who presented to the emergency department it was prehospital on 04/25/2023 with a chief complaint of abdominal pain. She reported the pain was in her upper abdomen and lower chest. She had associated vomiting and has had previous similar episodes that had been less severe in the past. Upon presentation emergency department her total bili was 4.3 with a direct bilirubin of 2.9, AST 118 and ALT 64. Ultrasound of her abdomen showed distended gallbladder with gallstones and slight pericholecystic fluid/edema with mild gallbladder wall thickening. GI and general surgery have been consulted. MRCP is pending and if no evidence of choledocholithiasis the plan will be for lap cholecystectomy tomorrow on 04/27/2023. If it is positive she may require an ERCP prior to lap tammy. Patient states she is completely pain-free at this time and not having any nausea or vomiting. Able to press on her abdomen without any pain. Awaiting MRCP this morning to make decisions with ongoing plan of care. Objective Data Objective Data Vital Signs: Vital Signs Temp Pulse Resp BP Pulse Ox O2 Del Method 97.7 F L 78 16 119/48 L 97 Room Air 04/26/23 03:14 04/26/23 03:14 04/26/23 03:14 04/26/23 03:14 04/26/23 03:14 04/26/23 03:14 Oxygen Delivery Method Room Air Weight: 78.471 kg Body Mass Index (BMI) 30.6 Intake & Output: Intake and Output for Last 24 Hours 04/24/23 04/25/23 04/26/23 23:59 23:59 23:59 Intake Total 1050 / 1050 970.83 / 970.83 Balance 1050 / 1050 970.83 / 970.83 Lab / Micro Data Result Diagrams: 04/26/23 05:25 04/26/23 05:25 Labs: Laboratory Results - last 24 hr 04/25/23 14:15: WBC 11.3 H, RBC 4.01 L, Hgb 12.3, Hct 34.3 L, MCV 85.5, MCH 30.7, MCHC 35.9, RDW Std Deviation 46.2 H, RDW Coeff of [place] 14.8 H, Plt Count 222, MPV 9.0, Immature Gran % (Auto) 0.200, Neut % (Auto) 89.8 H, Lymph % (Auto) 4.7 L, [place] % (Auto) 4.3, Eos % (Auto) 0.8, Baso % (Auto) 0.2, Absolute Neuts (auto) 10.1 H, Absolute Lymphs (auto) 0.53 L, Nucleated RBC % 0 04/25/23 14:15: Sodium 137, Potassium 3.8, Chloride 101, Carbon Dioxide 27.0, Anion Gap 9, BUN 16, Creatinine 1.29 H, Estim Creat Clear Calc 32.61, Est GFR (MDRD) Af Amer 52 L, Est GFR (MDRD) Non-Af 43 L, BUN/Creatinine Ratio 12.4, Glucose 264 H, Calcium 8.9, Total Bilirubin 4.40 H, AST 118 H, ALT 64 H, Alkaline Phosphatase 96, Total Protein 7.4, Albumin 4.0, Globulin 3.4, Albumin/Globulin Ratio 1.2, Lipase 54 04/25/23 14:15: Total Bilirubin 4.30 H, Direct Bilirubin 2.92 H, Indirect Bilirubin 1.40 H, C-React Prot Ext Range 8.11 H 04/25/23 14:15: ESR 8 04/25/23 15:46: Urine Color Yellow, Urine Clarity Sl. Cloudy, Urine pH 6.0, Ur Specific [place] 1.015, Urine Protein 30 H, Urine Glucose (UA) 250 H, Urine Ketones 15 H, Urine Occult Blood 50 H, Urine Nitrite Negative, Urine Bilirubin 1 H, Urine Urobilinogen 8 H, Ur Leukocyte Esterase 500 H, Urine RBC 0-5 SEEN, Urine WBC 10-25 SEEN, Ur Squamous Epith Cells 0-5 SEEN, Urine Bacteria 1+, Urine Mucus 0 SEEN 04/25/23 21:53: POC Glucose 232 H 04/26/23 05:25: WBC 6.6, RBC 3.18 L, Hgb 9.8 L, Hct 28.3 L, MCV 89.0, MCH 30.8, MCHC 34.6, RDW Std Deviation 47.8 H, RDW Coeff of [place] 14.9 H, Plt Count 186, MPV 9.0, Immature Gran % (Auto) 0.300, Neut % (Auto) 82.4 H, Lymph % (Auto) 8.1 L, [place] % (Auto) 8.0, Eos % (Auto) 0.9, Baso % (Auto) 0.3, Absolute Neuts (auto) 5.5, Absolute Lymphs (auto) 0.54 L, Nucleated RBC % 0, Differential Comment SCANNED 04/26/23 05:25: Sodium 141, Potassium 3.4 L, Chloride 107, Carbon Dioxide 28.0, Anion Gap 6, BUN 18, Creatinine 1.53 H, Estim Creat Clear Calc 27.49, Est GFR (MDRD) Af Amer 43 L, Est GFR (MDRD) Non-Af 35 L, BUN/Creatinine Ratio 11.8, Glucose 124 H, Calcium 8.1 L, Total Bilirubin 6.10 H, AST 209 H, ALT 165 H, Alkaline Phosphatase 83, Total Protein 5.8 L, Albumin 3.0 L, Globulin 2.8, Albumin/Globulin Ratio 1.1 04/26/23 06:05: POC Glucose 116 H Radiography Diagnostic Testing: Radiology Impression Gallbladder Ultrasound 04/25/23 14:45 IMPRESSION: Distended gallbladder with gallstones and slight pericholecystic edema. Mild gallbladder wall thickening. No localized tenderness. Electronically Signed: Oliverio Melvin MD at 17:23 EDT , Physical Exam Const alert, oriented x3, no apparent distress and well nourished Constitutional Narrative: Older, obese, white female, lying in bed, appears comfortable, watching television, nontoxic HEENT head/scalp atraumatic and moist oral mucous membranes HEENT Narrative: Mallampati 3, no thrush Head and Scalp: normocephalic Resp normal respiratory effort, no retractions, no use of accessory muscles and clear to auscultation bilaterally Auscultation: Negative for rales, rhonchi or wheezes Cardio regular rate, regular rhythm, S1 normal heart sound, S2 normal heart sound, no murmurs, no rub, no gallops and no clicks GI normal to inspection, nondistended, normoactive bowel sounds, soft to palpation and non-tender Extremity no clubbing, cyanosis or edema Extremity Narrative: 2+ pedal pulses Neuro oriented x3, moves all extremities and no focal motor deficits Speech: speech normal Psych affect normal Psych Narrative: Very pleasant, appropriate Assessment & Plan Assessment/Plan (1) Acute cholecystitis: (2) Elevated liver enzymes: (3) Elevated serum creatinine: (4) Hypokalemia: PLAN: Plan Acute cholecystitis with transaminitis -MRCP today -If MRCP unremarkable plan is for lap cholecystectomy tomorrow if positive patient will likely require ERCP -Clear liquid diet ordered await further input from GI/general surgery -IV fluids with normal saline 125 cc/h -As needed antiemetics -As needed pain medication -Both bili and liver enzymes are trending up today so I would not be surprised if she has a stone in a duct and would require an ERCP -GI/general surgery consultation-appreciate input Anemia -Significant drop overnight -We will reassess with repeat hemoglobin at 1200 as this may be dilutional or drawn off her line for IV fluids of been running as there were no signs of obvious bleeding Hypokalemia -We will replete with potassium 40 mill equivalents IV x1 dose -Check a.m. magnesium level -Repeat BMP in a.m. Elevated serum creatinine -Baseline is unknown as we have no recent laboratory data in our EMR -Current serum creatinine is 1.53 -Continue aggressive IV hydration -Avoid nephrotoxins as able -Would avoid Toradol use for pain relief -We will hold HCTZ/lisinopril for now Hypertension -Continue amlodipine -Hold lisinopril hydrochlorothiazide with renal function trending up -As needed hydralazine for systolic blood pressure greater than 160 Hyperlipidemia -Continue atorvastatin DM-2 -SSI -Hold glimepiride and metformin -Accu-Cheks as ordered GERD/esophageal stenosis due to chronic reflux esophagitis -Continue PPI 40 mg p.o. twice daily DVT prophylaxis -SCDs for now -Hemoglobin drop and perioperative -Would start Lovenox postoperatively CODE STATUS Full code Charges/Coding Visit Charges Inpatient E&M: 37253 Subs Hosp L2
--- NOTE | 2023-04-26 07:50 | PCM.PN.SRG ---
Subjective Subjective Patient not making complain of any abdominal pain. Patient's total bilirubin was up to 6. Objective Data Objective Data Vital Signs: Vital Signs Temp Pulse Resp BP Pulse Ox O2 Del Method 97.7 F L 78 16 119/48 L 97 Room Air 04/26/23 03:14 04/26/23 03:14 04/26/23 03:14 04/26/23 03:14 04/26/23 03:14 04/26/23 03:14 Oxygen Delivery Method Room Air Weight: 173 lb Body Mass Index (BMI) 30.6 Intake & Output: Intake and Output for Last 24 Hours 04/24/23 04/25/23 04/26/23 23:59 23:59 23:59 Intake Total 1050 / 1050 970.83 / 970.83 Balance 1050 / 1050 970.83 / 970.83 Lab / Micro Data Result Diagrams: 04/26/23 05:25 04/26/23 05:25 Labs: Laboratory Results - last 24 hr 04/25/23 14:15: WBC 11.3 H, RBC 4.01 L, Hgb 12.3, Hct 34.3 L, MCV 85.5, MCH 30.7, MCHC 35.9, RDW Std Deviation 46.2 H, RDW Coeff of [place] 14.8 H, Plt Count 222, MPV 9.0, Immature Gran % (Auto) 0.200, Neut % (Auto) 89.8 H, Lymph % (Auto) 4.7 L, [place] % (Auto) 4.3, Eos % (Auto) 0.8, Baso % (Auto) 0.2, Absolute Neuts (auto) 10.1 H, Absolute Lymphs (auto) 0.53 L, Nucleated RBC % 0 04/25/23 14:15: Sodium 137, Potassium 3.8, Chloride 101, Carbon Dioxide 27.0, Anion Gap 9, BUN 16, Creatinine 1.29 H, Estim Creat Clear Calc 32.61, Est GFR (MDRD) Af Amer 52 L, Est GFR (MDRD) Non-Af 43 L, BUN/Creatinine Ratio 12.4, Glucose 264 H, Calcium 8.9, Total Bilirubin 4.40 H, AST 118 H, ALT 64 H, Alkaline Phosphatase 96, Total Protein 7.4, Albumin 4.0, Globulin 3.4, Albumin/Globulin Ratio 1.2, Lipase 54 04/25/23 14:15: Total Bilirubin 4.30 H, Direct Bilirubin 2.92 H, Indirect Bilirubin 1.40 H, C-React Prot Ext Range 8.11 H 04/25/23 14:15: ESR 8 04/25/23 15:46: Urine Color Yellow, Urine Clarity Sl. Cloudy, Urine pH 6.0, Ur Specific [place] 1.015, Urine Protein 30 H, Urine Glucose (UA) 250 H, Urine Ketones 15 H, Urine Occult Blood 50 H, Urine Nitrite Negative, Urine Bilirubin 1 H, Urine Urobilinogen 8 H, Ur Leukocyte Esterase 500 H, Urine RBC 0-5 SEEN, Urine WBC 10-25 SEEN, Ur Squamous Epith Cells 0-5 SEEN, Urine Bacteria 1+, Urine Mucus 0 SEEN 04/25/23 21:53: POC Glucose 232 H 04/26/23 05:25: WBC 6.6, RBC 3.18 L, Hgb 9.8 L, Hct 28.3 L, MCV 89.0, MCH 30.8, MCHC 34.6, RDW Std Deviation 47.8 H, RDW Coeff of [place] 14.9 H, Plt Count 186, MPV 9.0, Immature Gran % (Auto) 0.300, Neut % (Auto) 82.4 H, Lymph % (Auto) 8.1 L, [place] % (Auto) 8.0, Eos % (Auto) 0.9, Baso % (Auto) 0.3, Absolute Neuts (auto) 5.5, Absolute Lymphs (auto) 0.54 L, Nucleated RBC % 0, Differential Comment SCANNED 04/26/23 05:25: Sodium 141, Potassium 3.4 L, Chloride 107, Carbon Dioxide 28.0, Anion Gap 6, BUN 18, Creatinine 1.53 H, Estim Creat Clear Calc 27.49, Est GFR (MDRD) Af Amer 43 L, Est GFR (MDRD) Non-Af 35 L, BUN/Creatinine Ratio 11.8, Glucose 124 H, Calcium 8.1 L, Total Bilirubin 6.10 H, AST 209 H, ALT 165 H, Alkaline Phosphatase 83, Total Protein 5.8 L, Albumin 3.0 L, Globulin 2.8, Albumin/Globulin Ratio 1.1 04/26/23 06:05: POC Glucose 116 H Radiography Diagnostic Testing: Radiology Impression Gallbladder Ultrasound 04/25/23 14:45 IMPRESSION: Distended gallbladder with gallstones and slight pericholecystic edema. Mild gallbladder wall thickening. No localized tenderness. Electronically Signed: Oliverio Melvin MD at 17:23 EDT , Physical Exam Const oriented x3 and no apparent distress Resp normal respiratory effort Cardio regular rate GI soft to palpation GI Narrative: Tender to deep palpation in the right upper quadrant, mild Inspection: Negative for abdominal distention Extremity no clubbing, cyanosis or edema Assessment & Plan Assessment/Plan (1) Elevated liver enzymes: (2) Acute cholecystitis: PLAN: Plan Await MRCP results that scheduled for about 9 to 10 AM this morning. If no evidence of choledocho- will proceed with lap tammy today. Reviewed the anatomy with the patient and discussed the procedure: laparoscopic cholecystectomy with cholangiograms, possible open. Review risks including but not limited to bleeding, infection, hernia, bile leak, retained gallstones requiring another procedure ERCP- Endoscopic Retrograde Cholangiopancreatography, injury to another organ (bile ducts, common bile duct, small bowel, etc.) and conversion to an open procedure. All questions were answered. Jess Hankins M.D. Pager: [phone] [facility] [address] [place] [address], [address] [place] [address] Office: [phone]
[2023-04-26] MEDS: Potassium Chloride 10mEq/100mL 10 MEQ/100 ML IV.SOLN. 100 MEQ IV BOLUS (10:36)
[2023-04-26] MEDS: 0.9% Saline Lock 10 ML Syringe IV ×3 (10:37→21:12)
[2023-04-26] MEDS: Potassium Chloride 10mEq/100mL 10 MEQ/100 ML IV.SOLN. 75 MEQ IV BOLUS ×3 (12:06→17:42)
[2023-04-26 12:15] LABS: Bedside Glucose 98 mg/dL (74-106)
[2023-04-26 12:32] LABS: Hemoglobin 9.3 g/dL (12.0-15.0)
--- NOTE | 2023-04-26 13:50 | RAD_ITS ---
STUDY: ERCP. REASON FOR EXAM: Female, 72 years old. ERCP FLUOROSCOPY TIME (if supplied): ( 1 minute and 56 seconds ) minutes/seconds. 26.37 mGy TECHNIQUE: An ERCP was performed by the test driller. Imaging was provided. COMPARISON: Comparison is made with prior examination dated April 27, 2023. FINDINGS: There is a dilated common bile duct. Filling defects are seen within the distal portion suggestive of choledocholithiasis. A biliary stent was then placed. RAD/ERCP Biliary Only IMPRESSION: Dilated common bile duct with filling defects. A biliary stent was placed. Electronically Signed: Obinna Salgado MD at 9:30 EDT ,
--- NOTE | 2023-04-26 13:50 | CASEMGMT ---
RN?CM?CUSHION COVER INSPECTOR?CM?to room to meet with patient for initial transition planning/care coordination?assessment.?RN?CM?introduced self and role at [facility].? Pt voices understanding and consents to?assessment?at this time.? Pt sitting on edge of bed in no distress at this time.?Pt's sister @ bedside and pt agreeable to her being present during assessment. Pt is A/O at this time and answers all questions appropriately.?? Care providers, pharmacy, and demographics verified/updated at this time. PCP: Dr Lara Specialists: none Preferred Pharmacy: [facility] Insurance: [employer] [facility] Prescription Benefit:?Yes Living Will/HPOA:?Has both LW and HCPOA, who is her daughter, Nadine. LNOK:Nadine johnson Living Arrangements: Lives w/dtr, Nadine, in 2-story home w/2 steps to enter. Pt states does okay with the stairs. Independent. Transportation:?Pt states drives self and states no transportation concerns at this time.? DME: States has the following DME:?functioning glucometer w/supplies. ?Pt states no need for further DME at this time.? HHC/SNF: No hx of either. Denies needs and no needs identified. Pt wishes to return home and states has no concerns with going home at time of discharge.? CM?to follow for any discharge planning/needs.? Pt voices no concerns/needs at this time.? Advised pt to ask for?CM?if any questions/concerns/needs arise.? Voices understanding. PLAN:??Home Valerie ALYN?RN?CM
[2023-04-26 14:02] LABS: Hemoglobin A1c 7.7 % (3.8-5.6)
[2023-04-26] MEDS: Lactated Ringers 1,000 ML 15 ML IV (15:04)
--- NOTE | 2023-04-26 16:24 | OP.ERCP_ITS ---
Patient Name: Tashia Woodward Procedure Date: 04/26/2023 3:13 PM Date of : 1950 Age: 72 Procedure: ERCP Indications: Bile duct stone(s) Providers: Renan Moscoso DO Medicines: Monitored Anesthesia Care Patient Profile: This is a 72 year old female. Refer to note in patient chart for documentation of history and physical. Patient has symptoms of acute jaundice. Complications: No immediate complications. Procedure: Pre-Anesthesia Assessment: - Prior to the procedure, a History and Physical was performed, and patient medications and allergies were reviewed. The patient is competent. The risks and benefits of the procedure and the sedation options and risks were discussed with the patient. All questions were answered and informed consent was obtained. Patient identification and proposed procedure were verified by the physician in the pre-procedure area. Mental Status Examination: alert and oriented. Airway Examination: normal oropharyngeal airway and neck mobility. Respiratory Examination: clear to auscultation. CV Examination: normal. Prophylactic Antibiotics: The patient does not require prophylactic antibiotics. Prior Anticoagulants: The patient has taken no previous anticoagulant or antiplatelet agents. ASA Grade Assessment: II - A patient with mild systemic disease. After reviewing the risks and benefits, the patient was deemed in satisfactory condition to undergo the procedure. The anesthesia plan was to use general anesthesia. Immediately prior to administration of medications, the patient was re-assessed for adequacy to receive sedatives. The heart rate, respiratory rate, oxygen saturations, blood pressure, adequacy of pulmonary ventilation, and response to care were monitored throughout the procedure. The physical status of the patient was re-assessed after the procedure. After obtaining informed consent, the scope was passed under direct vision. Throughout the procedure, the patient's blood pressure, pulse, and oxygen saturations were monitored continuously. The Duodenoscope was introduced through the mouth, and advanced to the duodenum and used to inject contrast into the bile duct. The ERCP was accomplished without difficulty. The patient tolerated the procedure well. Scope In: 3:57:08 PM Scope Out: 4:14:39 PM Total Procedure Duration Time 0 hours 17 minutes 31 seconds Findings: The instrument calibrator film was normal. The esophagus was successfully intubated under direct vision. The scope was advanced to a normal major papilla in the descending duodenum without detailed examination of the pharynx, larynx and associated structures, and upper GI tract. The upper GI tract was grossly normal. The bile duct was deeply cannulated with the short-nosed traction sphincterotome. Contrast was injected. I personally interpreted the bile duct images. There was brisk flow of contrast through the ducts. Image quality was excellent. Contrast extended to the entire biliary tree. Opacification of the entire biliary tree except for the cystic duct and gallbladder was successful. The maximum diameter of the ducts was 10 mm. The middle third of the main bile duct contained two stones, the largest of which was 6 mm in diameter. The main bile duct was moderately dilated, with a stone causing an obstruction. The largest diameter was 10 mm. Placement of a long 0.025 inch Jagwire into the biliary tree was attempted. This passed successfully. A 5 mm biliary sphincterotomy was made with a traction (standard) sphincterotome using ERBE electrocautery. The sphincterotomy oozed blood. To discover objects, the biliary tree was swept with a 12 mm balloon starting at the bifurcation. Sludge was swept from the duct. All stones were removed. One 10 Fr by 7 cm temporary stent was placed 5 cm into the common bile duct. Bile flowed through the stent. The stent was in good position. A TTS dilator was passed through the scope. Dilation with a 15 mm balloon dilator was performed in the duodenum. Impression: - Dilation performed in the duodenum. - The entire main bile duct was moderately dilated, with a stone causing an obstruction. - Choledocholithiasis was found. Complete removal was accomplished by biliary sphincterotomy and balloon extraction. - A biliary sphincterotomy was performed. - The biliary tree was swept. - One temporary stent was placed into the common bile duct. Procedure Code(s): --- Professional --- 39848, Endoscopic retrograde cholangiopancreatography (ERCP); with placement of endoscopic stent into biliary or pancreatic duct, including pre- and post-dilation and guide wire passage, when performed, including sphincterotomy, when performed, each stent 86146, Endoscopic retrograde cholangiopancreatography (ERCP); with removal of calculi/debris from biliary/pancreatic duct(s) 76306, Esophagogastroduodenoscopy, flexible, transoral; with dilation of gastric/duodenal stricture(s) (eg, balloon, bougie) 28783, Endoscopic catheterization of the biliary ductal system, radiological supervision and interpretation CPT copyright 2017 [employer]. All rights reserved. The codes documented in this report are preliminary and upon vice president of software engineering review may be revised to meet current compliance requirements. Renan Moscoso DO 04/26/2023 4:23:47 PM This report has been signed electronically. Number of Addenda: 0 Note Initiated On: 04/26/2023 3:13 PM
--- NOTE | 2023-04-26 16:25 | OP.CCLET_ITS ---
04/26/2023 Dejon Lara [address] [place] [address] Re : ERCP procedure for Tashia Woodward Dear Dr. Lara This procedure was performed on Wednesday, April 26, 2023. My impressions and recommendations are as follows: Impressions : - Dilation performed in the duodenum. - The entire main bile duct was moderately dilated, with a stone causing an obstruction. - Choledocholithiasis was found. Complete removal was accomplished by biliary sphincterotomy and balloon extraction. - A biliary sphincterotomy was performed. - The biliary tree was swept. - One temporary stent was placed into the common bile duct. Recommendations : My findings are described in the full procedure note, which is enclosed. If I can be of further assistance, please feel free to contact me at . Sincerely, Renan Moscoso, 04/26/2023 4:23:47 PM This report has been signed electronically.
[2023-04-26 17:43] LABS: Bedside Glucose 78 mg/dL (74-106)
[2023-04-26] MEDS: Pantoprazole Sodium 40 MG Tablet PO (21:12)
[2023-04-26] MEDS: BENZOCAINE/MENTHOL 1 LOZENGE MUCOUS MEM (21:29)
[2023-04-26 23:30] LABS: Bedside Glucose 249 mg/dL (74-106)
[2023-04-27] VITALS (14 sets, daily range): BP systolic 129–160; BP diastolic 51–67; PULSE 68–84; RESP 16–20; TEMP 36.1–37.2; O2SAT 93–99
[2023-04-27] MEDS: BENZOCAINE/MENTHOL 1 LOZENGE MUCOUS MEM ×3 (00:46→17:47)
[2023-04-27 06:14] LABS: Absolute Lymphocyte Count 0.72 X10^3/uL (0.83-4.51); Absolute Neutrophil Count 3.7 X10^3/uL (2.0-7.7); Basophil# 0.01 X10^3/uL; Basophil% 0.2 % (0-1); Hematocrit 28.8 % (37-47); Hemoglobin 9.6 g/dL (12.0-15.0); Lymphocyte # 0.72 X10^3/ul (0.83-4.51); Lymphocyte % 14.3 % (19-41); Mean Corp Hgb Conc 33.3 g/dL (32-36); Mean Corpuscular Hgb 29.8 pg (27.0-32.0); Mean Corpuscular Volume 89.4 fL (81-99); Mean Platelet Vol. 9.7 fl (6.2-12.0); Monocyte# 0.47 X10^3/uL; Monocyte% 9.3 % (0-10); NRBC Flagged by Analyzer 0 % (0-5); Neutrophil # 3.74 X10^3/uL (2.7-7.7); Platelet Count 187 K/mm3 (150-450); RBC Distribution Width CV 14.8 % (11.6-14.6); RBC Distribution Width SD 48.3 fl (35.1-43.9); Red Blood Count 3.22 M/mm3 (4.2-5.4); White Blood Count 5.1 K/mm3 (4.4-11.0)
[2023-04-27 06:54] LABS: ALB/GLOB Ratio 1.1 RATIO (0.9-2.4); AST(SGOT) 94 U/L (15-37); Alanine Aminotransfer ALT/SGPT 123 U/L (13-56); Alkaline Phosphatase 79 U/L (45-117); Anion Gap 7 (5-15); BUN 16 mg/dL (7-18); BUN/Creat Ratio 11.3 RATIO (10-20); Chloride 107 mmol/L (98-107); Creatinine, Serum 1.42 mg/dL (0.55-1.02); EST Glomerular Filtration Rate 39 mL/min (>60); Est Glom Filt Rate - Afr Amer 47 mL/min (>60); Estimated Creatinine Clearance 29.62 ml/min; Globulin 2.8 g/dL (2.2-4.2); Glucose 148 mg/dL (74-106); Magnesium 1.5 mg/dL (1.6-2.6); Phosphorus 3.3 mg/dL (2.5-4.9); Potassium 3.8 mmol/L (3.5-5.1); Protein, Total 5.8 g/dL (6.4-8.2); Sodium Level 140 mmol/L (136-145)
[2023-04-27] MEDS: Acetaminophen 500 MG Tablet 1000 MG PO ×3 (06:56→23:58)
[2023-04-27] MEDS: 0.9% Saline Lock 10 ML Syringe IV ×3 (06:59→20:18)
[2023-04-27 07:08] LABS: HEPATITIS B SURFACE AG Negative (Negative); Hep C Antibodies Non Reactive (Non Reactive); Hepatitis A IgM Antibody Negative (Negative); Hepatitis B Core AB IgM Negative (Negative)
[2023-04-27 07:24] LABS: Bedside Glucose 139 mg/dL (74-106)
--- NOTE | 2023-04-27 07:41 | PN.HOSP_ITS ---
Reason for Visit Reason for Visit: Diagnoses Hypokalemia (04/25/23) Acute cholecystitis (04/25/23) Cholecystitis, unspecified (04/25/23) Unspecified abdominal pain (04/25/23) Abnormal levels of other serum enzymes (04/25/23) Other specified abnormal findings of blood chemistry (04/25/23) Subjective Subjective Patient denies any abdominal pain. Mild jaundice. Plan for lap tammy today. Objective Data Objective Data Vital Signs: Vital Signs Temp Pulse Resp BP Pulse Ox O2 Del Method 98.1 F 75 20 H 142/62 H 98 Room Air 04/27/23 06:49 04/27/23 06:49 04/27/23 06:49 04/27/23 06:49 04/27/23 06:49 04/27/23 06:49 Oxygen Delivery Method Room Air Weight: 173 lb Body Mass Index (BMI) 30.6 Intake & Output: Intake and Output for Last 24 Hours 04/25/23 04/26/23 04/27/23 23:59 23:59 23:59 Intake Total 1050 / 1050 3922.50 / 3922.50 50 / 50 Balance 1050 / 1050 3922.50 / 3922.50 50 / 50 Lab / Micro Data Result Diagrams: 04/27/23 05:24 04/27/23 05:24 Labs: Laboratory Results - last 24 hr 04/26/23 05:25: Hepatitis A IgM Ab Negative, Hep Bs Antigen Negative, Hep B Core IgM Ab Negative, Hepatitis C Ab (EIA) Non Reactive, Hep C Ab Comment Comment 04/26/23 11:57: POC Glucose 98 04/26/23 12:15: Hgb 9.3 L 04/26/23 12:15: Hemoglobin A1c 7.7 H 04/26/23 17:26: POC Glucose 78 04/26/23 21:30: POC Glucose 249 H 04/27/23 05:24: WBC 5.1, RBC 3.22 L, Hgb 9.6 L, Hct 28.8 L, MCV 89.4, MCH 29.8, MCHC 33.3, RDW Std Deviation 48.3 H, RDW Coeff of [place] 14.8 H, Plt Count 187, MPV 9.7, Immature Gran % (Auto) 0.200, Neut % (Auto) 74.0 H, Lymph % (Auto) 14.3 L, [place] % (Auto) 9.3, Eos % (Auto) 2.0, Baso % (Auto) 0.2, Absolute Neuts (auto) 3.7, Absolute Lymphs (auto) 0.72 L, Nucleated RBC % 0 04/27/23 05:24: Sodium 140, Potassium 3.8, Chloride 107, Carbon Dioxide 26.0, Anion Gap 7, BUN 16, Creatinine 1.42 H, Estim Creat Clear Calc 29.62, Est GFR (MDRD) Af Amer 47 L, Est GFR (MDRD) Non-Af 39 L, BUN/Creatinine Ratio 11.3, Glucose 148 H, Calcium 8.0 L, Phosphorus 3.3, Magnesium 1.5 L, Total Bilirubin 2.20 H, AST 94 H, ALT 123 H, Alkaline Phosphatase 79, Total Protein 5.8 L, Albumin 3.0 L, Globulin 2.8, Albumin/Globulin Ratio 1.1 04/27/23 06:55: POC Glucose 139 H Radiography Diagnostic Testing: Radiology Impression MRCP 04/25/23 19:30 IMPRESSION: 1. Choledocholithiasis of the lower common duct. Extrahepatic more than intrahepatic bile duct dilation. 2. Cholelithiasis with slight gallbladder wall thickening and pericholecystic fluid. Electronically Signed: Sim (Brooks) Leroy, at 10:37 EDT Reading Location ID and State: [facility] / [place] , Service support , Physical Exam Narrative Seen and examined. General: Alert, Oriented x3, Cooperative HEENT: Mild icterus. Atraumatic, PERRLA, EOMI, Normocephalic Oral: Oral mucosa moist. No Gingival or Mucosal Lesions/ Ulcerations Neck: Supple, No JVD, Negative Carotid Bruits Lungs: Air entry diminished in bilateral lung bases. No crepitation/rhonchi Cardiovascular: Regular rate, Regular Rhythm, Normal S1, Normal S2, systolic murmur right second ICS. Abdomen: Bowel Sounds Present, Soft, Non Tender, Non-Distended. No palpable mass. : No renal angle tenderness. No suprapubic tenderness. Extremities: No edema, Capillary Refill Less than 3 Seconds Skin: No rashes, No breakdown Musculoskeletal: No Tenderness to Palpation of Joints or Extremities. ROM full and intact. Neurological: Cranial nerves II-XII grossly intact, DTR 2+/4 and Symmetrical, Neuro grossly intact Psych/Mental Status: Normal Affect, Appropriate. Assessment & Plan Assessment/Plan (1) Acute cholecystitis: (2) Elevated liver enzymes: (3) Elevated serum creatinine: (4) Hypokalemia: PLAN: Plan 1. Acute cholecystitis with choledocholithiasis: Patient admitted to [facility] floor. Patient was treated with IV fluid. Pain control and supportive treatment with antibiotics. GI and general surgery consulted. MRCP shows dilat ed CBD more extrahepatic than intrahepatic. -MRCP today ERCP was done on 04/26/2023. Entire main bile duct was moderately dilated due to stone. Biliary sphincterotomy and balloon extraction was done. 1 temporary biliary stent into CBD. Plan for lap tammy about noon today 2. Anemia chronic normocytic normochromic anemia: H&H 9.6/28%. Platelet count normal. No obvious sign of bleeding. Monitor CBC. H&H profile similar for last 3 lab draws. Hypokalemia: Potassium has been corrected. Hypomagnesemia magnesium 1.5, repleted. Monitor electrolytes. Phosphorus 3.3. Elevated serum creatinine, unclear CKD or MUSHTAQ: Baseline unknown. This admission, serum creatinine 1.53 with mild improvement 1.42. Avoid nephrotoxin NSAIDs, HCTZ/lisinopril. - Hypertension -Continue amlodipine -Hold lisinopril hydrochlorothiazide with renal function trending up -As needed hydralazine for systolic blood pressure greater than 160 Hyperlipidemia -Continue atorvastatin DM-2 -SSI -Hold glimepiride and metformin -Accu-Cheks as ordered GERD/esophageal stenosis due to chronic reflux esophagitis -Continue PPI 40 mg p.o. twice daily DVT prophylaxis -SCDs for now -Hemoglobin drop and perioperative -Would start Lovenox postoperatively CODE STATUS Full code Clinical Impression(s) from Imaging Studies Gallbladder Ultrasound 04/25/23 14:45 IMPRESSION: Distended gallbladder with gallstones and slight pericholecystic edema. MRCP 04/25/23 19:30 IMPRESSION: 1. Choledocholithiasis of the lower common duct. Extrahepatic more than intrahepatic bile duct dilation. 2. Cholelithiasis with slight gallbladder wall thickening and pericholecystic fluid. Charges/Coding Visit Charges Inpatient E&M: 58924 Subs Hosp L2
[2023-04-27] MEDS: Pantoprazole Sodium 40 MG Tablet PO ×2 (08:06→20:08)
--- NOTE | 2023-04-27 08:21 | PN.SURG_ITS ---
Subjective Subjective Patient is status post ERCP with stent yesterday. Patient denies abdominal pain. Objective Data Objective Data Vital Signs: Vital Signs Temp Pulse Resp BP Pulse Ox O2 Del Method 98.1 F 75 20 H 142/62 H 98 Room Air 04/27/23 06:49 04/27/23 06:49 04/27/23 06:49 04/27/23 06:49 04/27/23 06:49 04/27/23 06:49 Oxygen Delivery Method Room Air Weight: 173 lb Body Mass Index (BMI) 30.6 Intake & Output: Intake and Output for Last 24 Hours 04/25/23 04/26/23 04/27/23 23:59 23:59 23:59 Intake Total 1050 / 1050 3922.50 / 3922.50 50 / 50 Balance 1050 / 1050 3922.50 / 3922.50 50 / 50 Lab / Micro Data Result Diagrams: 04/27/23 05:24 04/27/23 05:24 Labs: Laboratory Results - last 24 hr 04/26/23 05:25: Hepatitis A IgM Ab Negative, Hep Bs Antigen Negative, Hep B Core IgM Ab Negative, Hepatitis C Ab (EIA) Non Reactive, Hep C Ab Comment Comment 04/26/23 11:57: POC Glucose 98 04/26/23 12:15: Hgb 9.3 L 04/26/23 12:15: Hemoglobin A1c 7.7 H 04/26/23 17:26: POC Glucose 78 04/26/23 21:30: POC Glucose 249 H 04/27/23 05:24: WBC 5.1, RBC 3.22 L, Hgb 9.6 L, Hct 28.8 L, MCV 89.4, MCH 29.8, MCHC 33.3, RDW Std Deviation 48.3 H, RDW Coeff of [place] 14.8 H, Plt Count 187, MPV 9.7, Immature Gran % (Auto) 0.200, Neut % (Auto) 74.0 H, Lymph % (Auto) 14.3 L, [place] % (Auto) 9.3, Eos % (Auto) 2.0, Baso % (Auto) 0.2, Absolute Neuts (auto) 3.7, Absolute Lymphs (auto) 0.72 L, Nucleated RBC % 0 04/27/23 05:24: Sodium 140, Potassium 3.8, Chloride 107, Carbon Dioxide 26.0, Anion Gap 7, BUN 16, Creatinine 1.42 H, Estim Creat Clear Calc 29.62, Est GFR (MDRD) Af Amer 47 L, Est GFR (MDRD) Non-Af 39 L, BUN/Creatinine Ratio 11.3, Glucose 148 H, Calcium 8.0 L, Phosphorus 3.3, Magnesium 1.5 L, Total Bilirubin 2.20 H, AST 94 H, ALT 123 H, Alkaline Phosphatase 79, Total Protein 5.8 L, Album in 3.0 L, Globulin 2.8, Albumin/Globulin Ratio 1.1 04/27/23 06:55: POC Glucose 139 H Radiography Diagnostic Testing: Radiology Impression MRCP 04/25/23 19:30 IMPRESSION: 1. Choledocholithiasis of the lower common duct. Extrahepatic more than intrahepatic bile duct dilation. 2. Cholelithiasis with slight gallbladder wall thickening and pericholecystic fluid. Electronically Signed: Roney Harper (Brooks), at 10:37 EDT Reading Location ID and State: [facility] / [place] , Service support , Physical Exam Const oriented x3 and no apparent distress Resp normal respiratory effort Cardio regular rate GI soft to palpation and non-tender Inspection: Negative for abdominal distention Extremity no clubbing, cyanosis or edema Assessment & Plan Assessment/Plan (1) Elevated liver enzymes: (2) Acute cholecystitis: PLAN: Plan Lap tammy about 12 PM today. Jess Hankins M.D. Pager: [phone] [facility] [address] [place] [address], [facility], [address] [place] [address] Office: [phone]
--- NOTE | 2023-04-27 10:59 | CASEMGMT ---
Social Work SW met with pt to discuss advance directives. Pt confirms she does have a living will and thinks she has a HCPOA naming her daughter Nadine. Pt states she will call her attorney lawyer to confirm if this document has been completed. Pt notified that [facility] social workers can assist with HCPOA if one is not in place. SW also requested documents be brought in for scanning into the EMR when able. KRISTEN Child
--- NOTE | 2023-04-27 11:05 | NURSING ---
Patient off unit to OR at this time.
[2023-04-27] MEDS: Lactated Ringers 1,000 ML 15 ML IV ×2 (11:32→14:59)
[2023-04-27 12:09] LABS: Anti-Centromere B Ab <0.2 AI (0.0-0.9); Anti-Chromatin <0.2 AI (0.0-0.9); Anti-Jo <0.2 AI (0.0-0.9); Anti-Scleroderma-70 AB <0.2 AI (0.0-0.9); Anti-dsDNA Ab <1 IU/mL (0-9); RNP Ab 0.2 AI (0.0-0.9); SJOGREN'S Anti-SS-A test < 0.2 AI (0.0-0.9); SJOGREN'S Anti-SS-B test < 0.2 AI (0.0-0.9); Smith Ab <0.2 AI (0.0-0.9)
--- NOTE | 2023-04-27 12:35 | GALL_PTH ---
PATIENT: MARU LEE LOC: [facility]3 U#:[id number] AGE/SX: 72/F ROOM: [facility] RE04/25/[address]: Dr. Jaden Landa MD : 1950 BED: 1 DIS: 04/28/2023 SPEC #: [id number] RECD: 04/27/23 16:34 STATUS: DASHA RE #: [id number] NOEL: 04/27/23 12:[address]: Jess Hankins DEPT: SURGICAL PATHOLOGY RECD BY: Susan Esquivel ENTERED: 04/28/23 09:09 SP TYPE: GALLBLADDE OTHR DR: Dr. Siddhartha Yi, DO Dr. Dejon Lara, DO Dr. Lizzette Schmitt, DO MD Dr. Jess Hills MD Tissues: Gallbladder, NOS Procedures: Surgery Specimen Level III Comments: @ Ordering doctor for SUIII edited from to @ by BUDDY at 04/28/23 1503 @ Submitting doctor edited from to @ by BUDDY at 04/28/23 1503 HEADER OPERATION: Laparoscopic cholecystectomy with IOC PRE-OP DIAGNOSIS: Elevated liver enzymes, acute cholecystitis TISSUE SUBMITTED: Gallbladder MICROSCOPIC DIAGNOSIS Gallbladder, cholecystectomy: Acute and chronic cholecystitis and cholelithiasis. AM:hortensia 04/29/2023 MICROSCOPIC DESCRIPTION Slides are reviewed. GROSS DESCRIPTION Received is one container labeled with the patient's name and designated gallbladder. The specimen consists of a gallbladder measuring 11.0 cm in length and up to 4.0 cm in diameter. The external surface is pink-branch, smooth and glistening for the most part. Focally it is granular, hemorrhagic and contains cautery artifact. The gallbladder contains branch-yellow, turbid bile and a few blood clots and three black, irregular stones measuring 0.3 to 1.2 cm in greatest dimension and in aggregate 2.0 x 1.0 x 0.8 cm. The mucosa is bile-stained and without any mass lesions. The gallbladder wall measures up to 0.4 cm in thickness. Super[facility] sections from the gallbladder and the cystic duct are submitted in one cassette. / SJ:hortensia 04/28/2023 TC:2 CPT: 10622
--- NOTE | 2023-04-27 12:53 | RAD_ITS ---
STUDY: INTRAOPERATIVE CHOLANGIOGRAM. REASON FOR EXAM: Female, 72 years old. Upper scopic cholecystectomy. FLUOROSCOPY TIME (if supplied): ( 10 seconds ) minutes/seconds. 6.51 mGy TECHNIQUE: An intraoperative Cholangiogram was performed by the surgeon. Imaging was provided. COMPARISON: None. FINDINGS: A stent is seen in the common bile duct. Dilatation of the left intrahepatic biliary duct. Dilatation and irregular appearance of the common bile duct. Contrast is seen within the duodenum. RAD/Cholangiogram/ O R,Initial IMPRESSION: Dilatation and irregular appearance of the common bile duct. The CBD stent is patent. Electronically Signed: Obinna Salgado MD at 9:22 EDT ,
--- NOTE | 2023-04-27 14:00 | EX.PCM.PN.GI ---
Subjective Subjective Patient underwent cholecystectomy. she did well during the procedure. Objective Data Objective Data Vital Signs: Vital Signs Temp Pulse Resp BP Pulse Ox O2 Del Method 97.8 F 73 20 H 149/57 H 95 Room Air 04/27/23 20:07 04/27/23 20:07 04/27/23 20:07 04/27/23 20:07 04/27/23 20:07 04/27/23 20:09 Oxygen Delivery Method Room Air Weight: 173 lb Body Mass Index (BMI) 30.6 Intake & Output: Intake and Output for Last 24 Hours 04/25/23 04/26/23 04/27/23 23:59 23:59 23:59 Intake Total 1050 / 1050 3922.50 / 3922.50 1554 / 1554 Output Total 0 / 0 Balance 1050 / 1050 3922.50 / 3922.50 1554 / 1554 Lab / Micro Data Result Diagrams: 04/27/23 05:24 04/27/23 05:24 Labs: Laboratory Results - last 24 hr 04/26/23 05:25: Hepatitis A IgM Ab Negative, Hep Bs Antigen Negative, Hep B Core IgM Ab Negative, Hepatitis C Ab (EIA) Non Reactive, Hep C Ab Comment Comment 04/26/23 05:25: DAVION-1 Antibody <0.2, SS-A/Ro IgG Antibody < 0.2, SS-B/La IgG Antibody < 0.2, Sm (Vazquez) Antibody <0.2, FOOD DEHYDRATOR OPERATOR Antibody 0.2, Scl-70 Scleroderma Ab <0.2, Double Strand DNA Ab <1, Centromere B Antibody <0.2 04/26/23 21:30: POC Glucose 249 H 04/27/23 05:24: WBC 5.1, RBC 3.22 L, Hgb 9.6 L, Hct 28.8 L, MCV 89.4, MCH 29.8, MCHC 33.3, RDW Std Deviation 48.3 H, RDW Coeff of [place] 14.8 H, Plt Count 187, MPV 9.7, Immature Gran % (Auto) 0.200, Neut % (Auto) 74.0 H, Lymph % (Auto) 14.3 L, [place] % (Auto) 9.3, Eos % (Auto) 2.0, Baso % (Auto) 0.2, Absolute Neuts (auto) 3.7, Absolute Lymphs (auto) 0.72 L, Nucleated RBC % 0 04/27/23 05:24: Sodium 140, Potassium 3.8, Chloride 107, Carbon Dioxide 26.0, Anion Gap 7, BUN 16, Creatinine 1.42 H, Estim Creat Clear Calc 29.62, Est GFR (MDRD) Af Amer 47 L, Est GFR (MDRD) Non-Af 39 L, BUN/Creatinine Ratio 11.3, Glucose 148 H, Calcium 8.0 L, Phosphorus 3.3, Magnesium 1.5 L, Total Bilirubin 2.20 H, AST 94 H, ALT 123 H, Alkaline Phosphatase 79, Total Protein 5.8 L, Albumin 3.0 L, Globulin 2.8, Albumin/Globulin Ratio 1.1 04/27/23 06:55: POC Glucose 139 H 04/27/23 15:46: POC Glucose 180 H 04/27/23 17:11: POC Glucose 208 H Physical Exam Const oriented x3 and no apparent distress Resp normal respiratory effort Cardio regular rate GI soft to palpation and non-tender Inspection: Negative for abdominal distention Extremity no clubbing, cyanosis or edema Assessment & Plan Assessment/Plan (1) Acute cholecystitis: (2) Elevated liver enzymes: (3) Elevated serum creatinine: (4) Hypokalemia: PLAN: Plan Acute cholecystitis with choledocholithiasis: Patient admitted to [facility] floor. Patient was treated with IV fluid. Pain control and supportive treatment with antibiotics. GI and general surgery consulted. MRCP shows dilated CBD more extrahepatic than intrahepatic. -MRCP today ERCP was done on 04/26/2023. Entire main bile duct was moderately dilated due to stone. Biliary sphincterotomy and balloon extraction was done. 1 temporary biliary stent into CBD. Plan for lap tammy about noon today Clinical Impression(s) from Imaging Studies Gallbladder Ultrasound 04/25/23 14:45 IMPRESSION: Distended gallbladder with gallstones and slight pericholecystic edema. MRCP 04/25/23 19:30 IMPRESSION: 1. Choledocholithiasis of the lower common duct. Extrahepatic more than intrahepatic bile duct dilation. 2. Cholelithiasis with slight gallbladder wall thickening and pericholecystic fluid. Charges/Coding Visit Charges Inpatient E&M: 52910 Subs Hosp L3
[2023-04-27] MEDS: Bupivacaine Mpf 0.5% 30 ML VIAL (14:09)
--- NOTE | 2023-04-27 14:19 | PCM.OPRPT ---
Report of Operation Date of Procedure: 04/27/23 Pre-Operative Diagnosis: Acute cholecystitis, hx of choledocholithiasis Post-Operative Diagnosis: Same Surgery/Procedure Performed:: Laparoscopically cholecystectomy with cholangiogram Surgeon: Jess Hankins Type of Anesthesia: General/Supplemental Anesthesiologist: Javier Thao Special Medications: Zosyn 3.375 g IV every 8 hours for acute cholecystitis/choledocholithiasis Specimen's removed: Gallbladder and stones Estimated Blood Loss (mL): 20 cc Description of Procedure: Indications: this is a 72 year-old female who developed abdominal pain/nausea/vomiting and on workup was found to have elevated liver function with choledocholithiasis, acute cholecystitis, cholelithiasis status post ERCP yesterday with some durotomy and stent placement. Laparoscopic cholecystectomy was elected. Description procedure: The patient was placed on operating table in supine position. A timeout was completed verifying correct patient, procedure, site, position and special equipment prior to beginning procedure. General Anesthesia was induced. The abdomen was prepped and draped in usual sterile fashion. An incision was made in the natural skin line above the umbilicus. The fascia was elevated and incised. The peritoneum was elevated and incised. Entry into the peritoneum was confirmed visually and no bowel was noted in the vicinity of the incision. Paiz trocar was placed. The abdomen was insufflated with carbon dioxide to a pressure of 12-15 mmHg. Patient tolerated insufflation well. The laparoscope was then inserted and abdomen inspected. No injuries from initial trocar placement were noted. Additional trochars were then inserted in the following locations 5 mm trocar in the epigastrium and 2 more 5 mm trochars along the right costal margin. The abdomen was inspected no abnormalities were found. The table is placed in reverse Trendelenburg position with the right side up. The adhesions between the gallbladder and omentum were lysed sharply. The dome of the gallbladder was grasped with atraumatic grasper passed through the lateral port and retracted over the dome of the liver. Infundibulum was then grasped with atraumatic grasper through the midclavicular port and retracted to the right lower quadrant. This maneuver exposed Calot's triangle. The peritoneum overlying the gallbladder infundibulum was then incised and cystic duct and artery identified and circumferentially dissected. Landry catheter was used for cholangiograms. The cholangiogram showed good filling of the common bile duct into the duodenum with no filling defects, good filling of the right and left bile ducts as well. The cystic duct and artery were then doubly clipped and divided close to the gallbladder. The gallbladder then dissected from its peritoneal attachments by electrocautery. Hemostasis was checked and the gallbladder and contained stones were removed using the endoscopic retrieval bag through the umbilical port, which need to be enlarged to remove the gallbladder. The gallbladder is passed off table as specimen. The gallbladder fossa was irrigated with saline and hemostasis obtained. There is no evidence of bleeding from the gallbladder fossa or cystic artery leakage of bile from the cystic duct stump. Secondary trochars removed under direct vision. No bleeding was noted the trocar sites. The laparoscope was withdrawn and umbilical trocar removed. The abdomen was allowed to collapse. The fascia of the 12 mm trocar was closed with 2 egolrn-de-ldimw 0 Vicryl suture. The skin was closed with sutures of 4-0 Monocryl and Steri-Strips. The patient was extubated. The patient tolerated procedure well and was taken to the postanesthesia care unit in stable condition. Complications none
--- NOTE | 2023-04-27 14:22 | DCINST_ITS ---
Discharge Instructions Diet Discharge Diet: Light diet - advance as tolerated Activity Discharge Activity: May Not Drive (while taking narcotic pain medications.) May shower in (days): 1 Lifting Restrictions: no lifting >20 lbs x 2 wks, no strenuous exercise for 4 wks Dressing / Incision Call your doctor if your incision/area has: Continuous Slow Oozing, Sudden Increased Bleeding, Increased Pain/ Swelling, Increased Redness, Foul Smelling Discharge and Swelling at the incision site Call your doctor if you observe: Fever of 101 or Higher Remove Dressing in: 2 days Cleanse incision/area with: Soap & Water Additional Dressing/Incision Instructions:: Steri-Strips will fall off in 7 to 10 days, if they do not fall off okay to remove after 10 days. Follow Up Care Please Follow Up With: Jess Hankins MD When: Call the office for a follow-up appointment 2 weeks; after 5 PM and on the weekends call [phone] with any concerns. Test Results: Test results from this visit will be discussed in further detail at your follow- up appointment, if applicable. Discharge Plan Admission Admit Date/Time: 04/25/23 18:33 Attending Provider: Jaden Landa Primary Care Provider: Dejon Lara Consulting Providers: Jess Hankins ; Siddhartha Yi ; Lizzette Schmitt Discharge Orders/Prescriptions Prescriptions: New tramadol 50 mg tablet 50 - 100 mg PO Q6H PRN (Reason: pain) 3 Days Qty: 16 0RF No Action Lisinopril/Hydrochlorothiazide [Zestoretic 20/25 Tablet] 1 TABLET tablet 1 tab PO DAILY Label Comments: HYPERTENSION pantoprazole 40 MG tablet 40 mg PO BID Qty: 60 0RF atorvastatin 10 mg tablet 10 mg PO DAILY Label Comments: TAKE 1 TABLET BY MOUTH ONCE DAILY AT BEDTIME FOR CHOLESTEROL LOWERING. amlodipine 2.5 mg tablet 2.5 mg PO DAILY Label Comments: TAKE 1 TABLET BY MOUTH ONCE DAILY metformin 500 mg tablet 500 mg PO BID Qty: 270 3RF Rx Instructions: take 2 tabs with breakfast, 1 tab with supper glimepiride 2 MG tablet 4 mg PO DAILY Qty: 180 4RF Referrals / Follow Up: Dejon Lara DO [Primary Care Provider] - Disposition Disposition (needs filled in before D/C Order can be placed): Home, Self Care
[2023-04-27 16:04] LABS: Bedside Glucose 180 mg/dL (74-106)
[2023-04-27] MEDS: Insulin Lispro 100 UNIT/ML INSULN.PEN SC (17:12)
[2023-04-27] MEDS: amLODIPine 2.5 MG Tablet PO (17:14)
[2023-04-27] MEDS: Lisinopril 20 MG Tablet PO (17:14)
[2023-04-27 17:33] LABS: Bedside Glucose 208 mg/dL (74-106)
--- NOTE | 2023-04-27 20:27 | NURSING ---
Patient refusing to urinate in hat. I'll take it out of there, it sits too high. I can't pee.
[2023-04-27 22:10] LABS: Bedside Glucose 252 mg/dL (74-106)
[2023-04-28 00:04] VITALS: BP 145/66; PULSE 85; RESP 18; TEMP 36.6; O2SAT 98
[2023-04-28 05:42] LABS: Absolute Lymphocyte Count 0.83 X10^3/uL (0.83-4.51); Absolute Neutrophil Count 4.3 X10^3/uL (2.0-7.7); Basophil# 0.01 X10^3/uL; Basophil% 0.2 % (0-1); Hematocrit 29.1 % (37-47); Hemoglobin 9.8 g/dL (12.0-15.0); Lymphocyte # 0.83 X10^3/ul (0.83-4.51); Lymphocyte % 15.2 % (19-41); Mean Corp Hgb Conc 33.7 g/dL (32-36); Mean Corpuscular Hgb 30.1 pg (27.0-32.0); Mean Corpuscular Volume 89.3 fL (81-99); Mean Platelet Vol. 9.5 fl (6.2-12.0); Monocyte# 0.35 X10^3/uL; Monocyte% 6.4 % (0-10); NRBC Flagged by Analyzer 0 % (0-5); Neutrophil # 4.25 X10^3/uL (2.7-7.7); Neutrophil % 77.8 % (47-70); Platelet Count 220 K/mm3 (150-450); RBC Distribution Width CV 14.6 % (11.6-14.6); RBC Distribution Width SD 47.2 fl (35.1-43.9); Red Blood Count 3.26 M/mm3 (4.2-5.4); White Blood Count 5.5 K/mm3 (4.4-11.0)
[2023-04-28 06:00] LABS: AST(SGOT) 45 U/L (15-37); Alanine Aminotransfer ALT/SGPT 90 U/L (13-56); Albumin, Serum 2.9 g/dL (3.2-5.0); Alkaline Phosphatase 77 U/L (45-117); Anion Gap 7 (5-15); BUN 16 mg/dL (7-18); BUN/Creat Ratio 12.1 RATIO (10-20); Calcium,Total 8.1 mg/dL (8.5-10.1); Chloride 108 mmol/L (98-107); Creatinine, Serum 1.32 mg/dL (0.55-1.02); EST Glomerular Filtration Rate 42 mL/min (>60); Est Glom Filt Rate - Afr Amer 51 mL/min (>60); Estimated Creatinine Clearance 31.87 ml/min; Glucose 238 mg/dL (74-106); Magnesium 1.8 mg/dL (1.6-2.6); Potassium 3.9 mmol/L (3.5-5.1); Protein, Total 5.9 g/dL (6.4-8.2); Sodium Level 141 mmol/L (136-145)
[2023-04-28 06:27] VITALS: BP 144/61; PULSE 64; RESP 20; TEMP 36.5; O2SAT 96
[2023-04-28] MEDS: Insulin Lispro 100 UNIT/ML INSULN.PEN SC (06:34)
[2023-04-28] MEDS: Acetaminophen 500 MG Tablet 1000 MG PO (06:34)
[2023-04-28 07:11] LABS: Bedside Glucose 220 mg/dL (74-106)
[2023-04-28 09:00] VITALS: BP 140/87; PULSE 80; RESP 16; TEMP 36.6; O2SAT 98
[2023-04-28] MEDS: Lisinopril 20 MG Tablet PO (09:59)
[2023-04-28] MEDS: Pantoprazole Sodium 40 MG Tablet PO (09:59)
[2023-04-28] MEDS: amLODIPine 2.5 MG Tablet PO (09:59)
--- NOTE | 2023-04-28 10:14 | DCINST_ITS ---
Discharge Instructions Diet Discharge Diet: Light diet - advance as tolerated Activity May shower in (days): 1 Dressing / Incision Call your doctor if your incision/area has: Continuous Slow Oozing, Sudden Increased Bleeding, Increased Pain/ Swelling, Increased Redness, Foul Smelling Discharge and Swelling at the incision site Call your doctor if you observe: Fever of 101 or Higher Cleanse incision/area with: Soap & Water Additional Dressing/Incision Instructions:: Steri-Strips will fall off in 7 to 10 days, if they do not fall off okay to remove after 10 days. Follow Up Care Please Follow Up With: Jess Hankins MD Test Results: Test results from this visit will be discussed in further detail at your follow- up appointment, if applicable. Discharge Plan Admission Admit Date/Time: 04/25/23 18:33 Attending Provider: Jaden Landa Primary Care Provider: Dejon Lara Consulting Providers: Jess Hankins ; Siddhartha Yi ; Lizzette Schmitt Discharge Orders/Prescriptions Prescriptions: New oxycodone-acetaminophen 5-325 mg tablet 1 - 2 tab PO Q6H PRN (Reason: pain) 3 Days Qty: 14 0RF Continued Lisinopril/Hydrochlorothiazide [Zestoretic 20/25 Tablet] 1 TABLET tablet 1 tab PO DAILY Label Comments: HYPERTENSION pantoprazole 40 MG tablet 40 mg PO BID Qty: 60 0RF atorvastatin 10 mg tablet 10 mg PO DAILY Label Comments: TAKE 1 TABLET BY MOUTH ONCE DAILY AT BEDTIME FOR CHOLESTEROL LOWERING. amlodipine 2.5 mg tablet 2.5 mg PO DAILY Label Comments: TAKE 1 TABLET BY MOUTH ONCE DAILY Held metformin 500 mg tablet 500 mg PO BID Qty: 270 3RF Hold Instructions: Hold for 3 days. Rx Instructions: take 2 tabs with breakfast, 1 tab with supper glimepiride 2 MG tablet 4 mg PO DAILY Qty: 180 4RF Hold Instructions: Hold for 3 days. Referrals / Follow Up: Dejon Lara DO [Primary Care Provider] - Renan Moscoso DO [Med Staff - Active Staff] - Within 1 Month Jess Hankins MD [Med Staff - Active Staff] - Within 2 Weeks (for post op follow up) Disposition Disposition (needs filled in before D/C Order can be placed): Home, Self Care
--- NOTE | 2023-04-28 10:19 | PCM.DC.SUM ---
Providers Date of Admission: 04/25/23 Date of Discharge: 04/28/23 Primary Care Physician: Dr. Dejon Lara, Consultations 04/25/23 19:30 Consult: Gastroenterology Routine Consulting Provider: [facility] Reason for Consult: elevated LFTs EMERGENT Consult: No Notified: Yes Date Notified: 04/25/23 Time Notified: 18:37 Method of Notification: ED Physician Initiated Consult: General Surgery Routine Consulting Provider: Jess Hankins Reason for Consult: cholecystitis EMERGENT Consult: No Notified: Yes Date Notified: 04/25/23 Time Notified: 18:37 Method of Notification: ED Physician Initiated Reason For Visit: CHOLECYSTITIS Diagnosis Discharge Diagnosis (1) Acute cholecystitis: Status: Resolved Code(s): K81.0 - Acute cholecystitis (2) Elevated liver enzymes: Status: Acute Code(s): R74.8 - Abnormal levels of other serum enzymes (3) Elevated serum creatinine: Status: Acute Code(s): R79.89 - Other specified abnormal findings of blood chemistry (4) Hypokalemia: Status: Acute Code(s): E87.6 - Hypokalemia Plan 72-year-old female admitted with mainly right current right upper quadrant abdominal pain and lower chest pain. Patient also did have associated vomiting and nausea. Liver chemistry was elevated total bilirubin 4.3, direct bilirubin 2.9, AST 118 and ALT 64. Alkaline phosphatase 96 normal. 1. Acute cholecystitis with choledocholithiasis: Patient admitted to [facility] floor. Patient was treated with IV fluid. Pain control and supportive treatment with antibiotics. GI and general surgery consulted. MRCP shows dilated CBD more extrahepatic than intrahepatic. -MRCP today ERCP was done on 04/26/2023. Entire main bile duct was moderately dilated due to stone. Biliary sphincterotomy and balloon extraction was done. 1 temporary biliary stent into CBD. 04/28: Patient had lap tammy with cholangiogram yesterday. Uneventful intra and postop course. Seen and examined. Patient does not have significant abdominal pain and walking in the room. Patient does not need antibiotic. Prescription of Percocet given by the surgeon. Follow-up with Dr. Hankins in 2 weeks. Follow-up with GI in 1 month. 2. Anemia chronic normocytic normochromic anemia: H&H 9.6/28%. Platelet count normal. No obvious sign of bleeding. Monitor CBC. H&H profile similar for last 3 lab draws. Hypokalemia: Potassium has been corrected. Hypomagnesemia magnesium 1.5, repleted. Monitor electrolytes. Phosphorus 3.3. 04/28: Repeat magnesium normal 1.8. Phosphorus 3.3. Serum potassium normal. Elevated serum creatinine, most likely CKD stage IIIb, suspected diabetic nephropathy with small proteinuria UA: Baseline unknown. This admission, serum creatinine 1.53 with mild improvement 1.42. Avoid nephrotoxin NSAIDs, HCTZ/lisinopril. 04/28: Serial troponin fluctuates between 1.29-1.53 but then got better to 1.3. He does not merit acute kidney injury. Most likely patient has CKD, stage IIIb Hypertension -Continue amlodipine -Hold lisinopril hydrochlorothiazide with renal function trending up -As needed hydralazine for systolic blood pressure greater than 160 Hyperlipidemia -Continue atorvastatin DM-2 -SSI -Hold glimepiride and metformin -Accu-Cheks as ordered 04/28: Advised to hold glimepiride and metformin for next 3 days GERD/esophageal stenosis due to chronic reflux esophagitis -Continue PPI 40 mg p.o. twice daily DVT prophylaxis -SCDs for now -Hemoglobin drop and perioperative -Would start Lovenox postoperatively CODE STATUS Full code Discharge medication reconciliation done. Discharge follow-up instructions completed. Discharge process discussed with the patient and all questions were answered to patient's satisfaction. Total time spent, exact 35 minutes on discharge meds reconciliation, examination, coordination of care with nurses and ancillary staff, review of imaging and blood test and discussion with the patient on follow-up instructions. Clinical Impression(s) from Imaging Studies Gallbladder Ultrasound 04/25/23 14:45 IMPRESSION: Distended gallbladder with gallstones and slight pericholecystic edema. MRCP 04/25/23 19:30 IMPRESSION: 1. Choledocholithiasis of the lower common duct. Extrahepatic more than intrahepatic bile duct dilation. 2. Cholelithiasis with slight gallbladder wall thickening and pericholecystic fluid. Medications at Discharge Home Medications Lisinopril/Hydrochlorothiazide [Zestoretic 20/25 Tablet] 1 tab PO DAILY 10/27/13 pantoprazole 40 mg tablet,delayed release 40 mg PO BID ##60 12/02/13 metformin 500 mg tablet 500 mg PO BID #270 tabs 11/01/17 glimepiride 2 mg tablet 4 mg PO DAILY #180 tabs 01/21/18 amlodipine 2.5 mg tablet 2.5 mg PO DAILY 04/25/23 atorvastatin 10 mg tablet 10 mg PO DAILY 04/25/23 oxycodone-acetaminophen 5 mg-325 mg tablet 1 - 2 tab PO Q6H PRN pain 3 days #14 tabs 04/27/23 Physical Exam Narrative No abdominal pain nausea or vomiting. No fever. Seen and examined. General: Alert, Oriented x3, Cooperative HEENT: Mild icterus. Atraumatic, PERRLA, EOMI, Normocephalic Oral: Oral mucosa moist. No Gingival or Mucosal Lesions/ Ulcerations Neck: Supple, No JVD, Negative Carotid Bruits Lungs: Air entry diminished in bilateral lung bases. No crepitation/rhonchi Cardiovascular: Regular rate, Regular Rhythm, Normal S1, Normal S2, systolic murmur right second ICS. Abdomen: Bowel Sounds Present, Soft, Non Tender, Non-Distended. No palpable mass. : No renal angle tenderness. No suprapubic tenderness. Extremities: No edema, Capillary Refill Less than 3 Seconds Skin: No rashes, No breakdown Musculoskeletal: No Tenderness to Palpation of Joints or Extremities. ROM full and intact. Neurological: Cranial nerves II-XII grossly intact, DTR 2+/4 and Symmetrical, Neuro grossly intact Psych/Mental Status: Normal Affect, Appropriate. Weight / BMI Weight Weight: 173 lb Body Mass Index (BMI) 30.6 ABG / Lab / Microbiology Data Result Diagrams: 04/28/23 05:12 04/28/23 05:12 Laboratory: Laboratory Results - last 24 hr 04/26/23 05:25: DAVION-1 Antibody <0.2, SS-A/Ro IgG Antibody < 0.2, SS-B/La IgG Antibody < 0.2, Sm (Vazquez) Antibody <0.2, CURRICULUM WRITER Antibody 0.2, Scl-70 Scleroderma Ab <0.2, Double Strand DNA Ab <1, Centromere B Antibody <0.2 04/27/23 15:46: POC Glucose 180 H 04/27/23 17:11: POC Glucose 208 H 04/27/23 19:58: POC Glucose 252 H 04/28/23 05:12: WBC 5.5, RBC 3.26 L, Hgb 9.8 L, Hct 29.1 L, MCV 89.3, MCH 30.1, MCHC 33.7, RDW Std Deviation 47.2 H, RDW Coeff of [place] 14.6, Plt Count 220, MPV 9.5, Immature Gran % (Auto) 0.400, Neut % (Auto) 77.8 H, Lymph % (Auto) 15.2 L, [place] % (Auto) 6.4, Eos % (Auto) 0.0, Baso % (Auto) 0.2, Absolute Neuts (auto) 4.3, Absolute Lymphs (auto) 0.83, Nucleated RBC % 0 04/28/23 05:12: Sodium 141, Potassium 3.9, Chloride 108 H, Carbon Dioxide 26.0, Anion Gap 7, BUN 16, Creatinine 1.32 H, Estim Creat Clear Calc 31.87, Est GFR (MDRD) Af Amer 51 L, Est GFR (MDRD) Non-Af 42 L, BUN/Creatinine Ratio 12.1, Glucose 238 H, Calcium 8.1 L, Magnesium 1.8, Total Bilirubin 1.10 H, AST 45 H, ALT 90 H, Alkaline Phosphatase 77, Total Protein 5.9 L, Albumin 2.9 L, Globulin 3.0, Albumin/Globulin Ratio 1.0 04/28/23 06:31: POC Glucose 220 H Radiography Diagnostic Testing: Radiology Impression Cholangiogram 04/27/23 12:53 IMPRESSION: Dilatation and irregular appearance of the common bile duct. The CBD stent is patent. Electronically Signed: Obinna Salgado MD at 9:22 EDT , D/C Instructions Discharge Diet: Light diet - advance as tolerated May shower in (days): 1 Call your doctor if your incision/area has: Continuous Slow Oozing, Sudden Increased Bleeding, Increased Pain/ Swelling, Increased Redness, Foul Smelling Discharge and Swelling at the incision site Call your doctor if you observe: Fever of 101 or Higher Cleanse incision/area with: Soap & Water Additional Dressing/Incision Instructions: Steri-Strips will fall off in 7 to 10 days, if they do not fall off okay to remove after 10 days. Please Follow Up With: Jess Hankins MD When: Call the office for a follow-up appointment 2 weeks; after 5 PM and on the weekends call [phone] with any concerns. Meaningful Use Info Meaningful Use Diagnoses (Choose all that apply): None applicable Discharge Plan Admission Admit Date/Time: 04/25/23 18:33 Attending Provider: Jaden Landa Primary Care Provider: Dejon Lara Consulting Providers: Jess Hankins ; Siddhartha Yi ; Lizzette Schmitt Discharge Orders/Prescriptions Prescriptions: New oxycodone-acetaminophen 5-325 mg tablet 1 - 2 tab PO Q6H PRN (Reason: pain) 3 Days Qty: 14 0RF Continued Lisinopril/Hydrochlorothiazide [Zestoretic 20/25 Tablet] 1 TABLET tablet 1 tab PO DAILY Label Comments: HYPERTENSION pantoprazole 40 MG tablet 40 mg PO BID Qty: 60 0RF atorvastatin 10 mg tablet 10 mg PO DAILY Label Comments: TAKE 1 TABLET BY MOUTH ONCE DAILY AT BEDTIME FOR CHOLESTEROL LOWERING. amlodipine 2.5 mg tablet 2.5 mg PO DAILY Label Comments: TAKE 1 TABLET BY MOUTH ONCE DAILY Held metformin 500 mg tablet 500 mg PO BID Qty: 270 3RF Hold Instructions: Hold for 3 days. Rx Instructions: take 2 tabs with breakfast, 1 tab with supper glimepiride 2 MG tablet 4 mg PO DAILY Qty: 180 4RF Hold Instructions: Hold for 3 days. Referrals / Follow Up: Dejon Lara DO [Primary Care Provider] - Renan Moscoso DO [Med Staff - Active Staff] - Within 1 Month Jess Hankins MD [Med Staff - Active Staff] - Within 2 Weeks (for post op follow up) Disposition Disposition (needs filled in before D/C Order can be placed): Home, Self Care Charges/Coding Visit Charges Inpatient E&M: 81704 Disch Hosp >30min
--- NOTE | 2023-04-28 10:49 | PN.SURG_ITS ---
Subjective Subjective Patient denies much pain in incisions. Objective Data Objective Data Vital Signs: Vital Signs Temp Pulse Resp BP Pulse Ox O2 Del Method 97.8 F 80 16 140/87 H 98 Room Air 04/28/23 09:00 04/28/23 09:00 04/28/23 09:00 04/28/23 09:00 04/28/23 09:00 04/28/23 09:54 Oxygen Delivery Method Room Air Weight: 173 lb Body Mass Index (BMI) 30.6 Intake & Output: Intake and Output for Last 24 Hours 04/26/23 04/27/23 04/28/23 23:59 23:59 23:59 Intake Total 3922.50 / 3922.50 1554 / 1854 588.75 / 588.75 Output Total 0 / 0 Balance 3922.50 / 3922.50 1554 / 1854 588.75 / 588.75 Lab / Micro Data Result Diagrams: 04/28/23 05:12 04/28/23 05:12 Labs: Laboratory Results - last 24 hr 04/26/23 05:25: DAVION-1 Antibody <0.2, SS-A/Ro IgG Antibody < 0.2, SS-B/La IgG Antibody < 0.2, Sm (Vazquez) Antibody <0.2, COSMETOLOGY INSTRUCTOR Antibody 0.2, Scl-70 Scleroderma Ab <0.2, Double Strand DNA Ab <1, Centromere B Antibody <0.2 04/27/23 15:46: POC Glucose 180 H 04/27/23 17:11: POC Glucose 208 H 04/27/23 19:58: POC Glucose 252 H 04/28/23 05:12: WBC 5.5, RBC 3.26 L, Hgb 9.8 L, Hct 29.1 L, MCV 89.3, MCH 30.1, MCHC 33.7, RDW Std Deviation 47.2 H, RDW Coeff of [place] 14.6, Plt Count 220, MPV 9.5, Immature Gran % (Auto) 0.400, Neut % (Auto) 77.8 H, Lymph % (Auto) 15.2 L, [place] % (Auto) 6.4, Eos % (Auto) 0.0, Baso % (Auto) 0.2, Absolute Neuts (auto) 4.3, Absolute Lymphs (auto) 0.83, Nucleated RBC % 0 04/28/23 05:12: Sodium 141, Potassium 3.9, Chloride 108 H, Carbon Dioxide 26.0, Anion Gap 7, BUN 16, Creatinine 1.32 H, Estim Creat Clear Calc 31.87, Est GFR (MDRD) Af Amer 51 L, Est GFR (MDRD) Non-Af 42 L, BUN/Creatinine Ratio 12.1, Glucose 238 H, Calcium 8.1 L, Magnesium 1.8, Total Bilirubin 1.10 H, AST 45 H, ALT 90 H, Alkaline Phosphatase 77, Total Protein 5.9 L, Albumin 2.9 L, Globulin 3.0, Albumin/Globulin Ratio 1.0 04/28/23 06:31: POC Glucose 220 H Radiography Diagnostic Testing: Radiology Impression Cholangiogram 04/27/23 12:53 IMPRESSION: Dilatation and irregular appearance of the common bile duct. The CBD stent is patent. Electronically Signed: Obinna Salgado MD at 9:22 EDT , Physical Exam Resp normal respiratory effort Cardio regular rate GI GI Narrative: Abdomen: Soft, nondistended, tender near incision's dressed clean dry and intact, no peritoneal signs Assessment & Plan Assessment/Plan (1) S/P laparoscopic cholecystectomy: (2) S/P ERCP: PLAN: Plan Patient is doing well. Incision healing well. Plan to DC home from surgery standpoint. Jess Hankins M.D. Pager: [phone] [facility] [address] [place] [address], [address] [place] [address] Office: [phone]
[2023-04-29 09:09] LABS: Anti-Smooth Muscle ABS 4 Units (0-19); EBV Acute VCA IgM < 36.0 U/mL (0.0-35.9); EBV Nuclear Antigen IgG < 18.0 U/mL (0.0-17.9); IgG, Quant 794 mg/dL (586-1602); Immunoglobulin A 108 mg/dL (64-422); Immunoglobulin E 342 IU/mL (6-495); Immunoglobulin G, Subclass 1 401 mg/dL (248-810); Immunoglobulin G, Subclass 2 332 mg/dL (130-555); Immunoglobulin G, Subclass 3 43 mg/dL (15-102); Immunoglobulin G, Subclass 4 8 mg/dL (2-96); Immunoglobulin M 55 mg/dL (26-217)
== END 2023-04-28 10:54 | disposition home or self-care (01) | DRG 419 ==
LOC: ED 18:54 → MS3 19:01
PROVIDERS: Anesthesiology; Internal Medicine; Internal Medicine Gastroenterology; Surgery; Emergency Provider Student in an Organized Health Care Education/Training Program; PCP Student in an Organized Health Care Education/Training Program; Visit Provider Internal Medicine
PROC: 0FC98ZZ Extirpation of Matter from Common Bile Duct, Via Natural or Artificial Opening Endoscopic (ICD-10-PCS; CPT 43260; principal; 2023-04-26 15:40)
PROC: 0FT44ZZ Resection of Gallbladder, Percutaneous Endoscopic Approach (ICD-10-PCS; CPT 47610; principal; 2023-04-27 12:15)
DX: K80.63 Calculus of gallbladder and bile duct with acute cholecystitis with obstruction (principal); D53.8 Other specified nutritional anemias; E11.21 Type 2 diabetes mellitus with diabetic nephropathy; E11.22 Type 2 diabetes mellitus with diabetic chronic kidney disease; N18.32 Chronic kidney disease, stage 3b; K22.2 Esophageal obstruction; E78.5 Hyperlipidemia, unspecified; E87.6 Hypokalemia; I12.9 Hypertensive chronic kidney disease with stage 1 through stage 4 chronic kidney disease, or unspecified chronic kidney disease; K21.00 Gastro-esophageal reflux disease with esophagitis, without bleeding; E83.42 Hypomagnesemia; Z90.49 Acquired absence of other specified parts of digestive tract; Z79.84 Long term (current) use of oral hypoglycemic drugs; Z79.899 Other long term (current) drug therapy
CPT/HCPCS: 36415; 74181; 74300; 74328; 76000; 76705; 80053; 80074; 81001; 82247; 82248; 82784; 82785; 82787; 82962; 83036; 83516; 83690; 83735; 84100; 85018; 85025; 85652; 86140; 86225; 86235; 86664; 86665; 88304; 93005; 99284; J7030; J7050; J7120; A4216; J2405

== ENCOUNTER 2023-07-27 10:52 | Day surgery (SDC) | payer MEDICARE, SELFPAY ==
[2023-07-27] VITALS (7 sets, daily range): BP systolic 112–122; BP diastolic 50–57; PULSE 79–82; RESP 16–18; TEMP 36.2–36.6; O2SAT 96–98; BMI 31.2
--- NOTE | 2023-07-27 11:23 | PCM.HP.STD ---
HPI - General General Date of Admission: 07/27/23 Date of Service: 07/27/23 Chief Complaint: Stent removal HPI Narrative MARU LEE, is a 73 F who presents today for stent removal. She was admitted with mainly right current right upper quadrant abdominal pain and lower chest pain. Patient also did have associated vomiting and nausea. Liver chemistry was elevated total bilirubin 4.3, direct bilirubin 2.9, AST 118 and ALT 64. Alkaline phosphatase 96 normal. Acute cholecystitis with choledocholithiasis: Patient admitted to [facility] floor. Patient was treated with IV fluid. Pain control and supportive treatment with antibiotics. GI and general surgery consulted. MRCP shows dilated CBD more extrahepatic than intrahepatic. -MRCP displayed multiple stones in the common bile duct. ERCP was done on 04/26/2023. Entire main bile duct was moderately dilated due to stone. Biliary sphincterotomy and balloon extraction was done. 1 temporary biliary stent into CBD. 04/28: Patient had lap tammy with cholangiogram yesterday. Uneventful intra and postop course. Seen and examined. Patient does not have significant abdominal pain and walking in the room. Patient does not need antibiotic. Prescription of Percocet given by the surgeon. Follow-up with Dr. Hankins in 2 weeks. Follow-up with GI in 1 month. [facility] Medical History (Updated 07/22/23 @ 14:21 by Dayana Lake) Diabetes High cholesterol History of stress test Hypertension Kidney stones Neuropathy Non-smoker Shortness of breath on exertion Wears dentures Wears glasses Home Medications Lisinopril/Hydrochlorothiazide [Zestoretic Tablet] 1 tab PO DAILY 10/27/13 [History Last Taken 10/26/13 08:00] metformin 500 mg tablet 500 mg PO BID #270 tabs 11/01/17 [Rx Last Taken Unknown] glimepiride 2 mg tablet 4 mg (2 x 2 mg) PO DAILY #180 tabs 01/21/18 [Rx Last Taken Unknown] amlodipine 2.5 mg tablet 2.5 mg PO DAILY 04/25/23 [History Last Taken 07/27/23] atorvastatin 10 mg tablet 10 mg PO DAILY 04/25/23 [History Last Taken Unknown] Allergy/AdvReac Type Severity Reaction Status Date / Time No Known Allergies Allergy Verified 07/27/23 11:21 Surgical History (Updated 07/22/23 @ 14:21 by Dayana Lake) Hx of appendectomy S/P ERCP S/P laparoscopic cholecystectomy (~04/2023) Social History (Updated 04/25/23 @ 18:[address] Siddhartha Yi, DO) Smoking Status: Never smoker alcohol intake: never ROS Constitutional Constitutional: Denies fever(s) Eyes Eyes: Denies loss of central vision ENT HEENT: Denies dysphagia Cardiovascular Cardiovascular: Denies dyspnea or palpitations Respiratory/Chest Respiratory/Chest: Denies productive cough Gastrointestinal Gastrointestinal: Reports abdominal pain and nausea; Denies constipation Genitourinary Genitourinary: Denies dysuria Musculoskeletal Musculoskeletal: Denies joint swelling Integumentary Integumentary: Denies rash Neurologic Neurologic: Denies tingling Hematologic/Lymphatic Hematologic/Lymphatic: Denies easy bleeding Physical Exam Resp normal respiratory effort Cardio regular rate GI GI Narrative: Abdomen: Soft, nondistended, tender near incision's dressed clean dry and intact, no peritoneal signs Assessment & Plan Assessment/Plan (1) Acute cholecystitis: (2) Elevated liver enzymes: (3) Elevated serum creatinine: (4) Hypokalemia: PLAN: Plan Acute cholecystitis with choledocholithiasis: Patient admitted to [facility] floor. Patient was treated with IV fluid. Pain control and supportive treatment with antibiotics. GI and general surgery consulted. MRCP shows dilated CBD more extrahepatic than intrahepatic. -MRCP today ERCP was done on 04/26/2023. Entire main bile duct was moderately dilated due to stone. Biliary sphincterotomy and balloon extraction was done. 1 temporary biliary stent into CBD. Plan for removal of common bile duct stent today. Clinical Impression(s) from Imaging Studies Gallbladder Ultrasound 04/25/23 14:45 IMPRESSION: Distended gallbladder with gallstones and slight pericholecystic edema. MRCP 04/25/23 19:30 IMPRESSION: 1. Choledocholithiasis of the lower common duct. Extrahepatic more than intrahepatic bile duct dilation. 2. Cholelithiasis with slight gallbladder wall thickening and pericholecystic fluid.
[2023-07-27] MEDS: Lactated Ringers 1,000 ML 15 ML IV (11:39)
[2023-07-27 12:22] LABS: Bedside Glucose 263 mg/dL (74-106)
--- NOTE | 2023-07-27 12:35 | RAD_ITS ---
EXAM: FL ERCP Biliary Ductal System HISTORY: PAIN COMPARISON: 04/26/2023 12 fluoroscopic images obtained, 61.3 seconds of fluoroscopy was used.Dose of 13.94mGy FINDINGS: The endoscope was placed by Dr. Moscoso, and the ampulla of Vater was cannulized. A wire was placed into the biliary tree, and contrast was injected in a retrograde manner. The distal aspect of the common bile duct shows mucosal irregularity suggesting retained stones, stricture, or possible mass lesion.. Distal to this narrowing the common bile duct is dilated both extrahepatic and intrahepatic. No extravasation of contrast is noted. There was no flow of contrast visualized into the duodenum. RAD/ERCP Biliary Only IMPRESSION: Irregular appearance and narrowing it to the distal aspect of the common bile duct just proximal to the ampulla. Findings could be due to retained stones, stricture or mass lesion. Dilatation of the intrahepatic and extrahepatic biliary tree No flow of contrast noted into the duodenum. No extravasation of contrast identified Please refer to the Op note for complete details of the procedure Electronically Signed: Yordy Galaviz MD at 16:13 EDT ,
--- NOTE | 2023-07-27 13:18 | OP.CCLET_ITS ---
07/27/2023 Dejon Lara [address] [place] [address] Re : ERCP procedure for Tashia Woodward Dear Dr. Lara This procedure was performed on Thursday, July 27, 2023. My impressions and recommendations are as follows: Impressions : - The lower third of the main bile duct was dilated, with a stone causing an obstruction. - Choledocholithiasis was found. Complete removal was accomplished by biliary sphincterotomy and balloon extraction. - A biliary sphincterotomy was performed. - The biliary tree was swept. - One stent was removed from the biliary tree. Recommendations : My findings are described in the full procedure note, which is enclosed. If I can be of further assistance, please feel free to contact me at . Sincerely, Renan Moscoso, 07/27/2023 1:17:11 PM This report has been signed electronically.
--- NOTE | 2023-07-27 13:18 | OP.ERCP_ITS ---
Patient Name: Tashia Woodward Procedure Date: 07/27/2023 12:29 PM Date of : 1950 Age: 73 Procedure: ERCP Indications: Stent removal Providers: Renan Moscoso DO Medicines: Monitored Anesthesia Care Patient Profile: This is a 73 year old female. Refer to note in patient chart for documentation of history and physical. Patient has symptoms of chronic right upper quadrant abdominal pain and acute dyspepsia. Her most recent ERCP for stent and ERCP for stone removal was within the past three months. She is status post laparoscopic cholecystectomy within the past three months. Complications: No immediate complications. Procedure: Pre-Anesthesia Assessment: - Prior to the procedure, a History and Physical was performed, and patient medications and allergies were reviewed. The patient is competent. The risks and benefits of the procedure and the sedation options and risks were discussed with the patient. All questions were answered and informed consent was obtained. Patient identification and proposed procedure were verified by the physician in the pre-procedure area. Mental Status Examination: alert and oriented. Airway Examination: normal oropharyngeal airway and neck mobility. Respiratory Examination: clear to auscultation. CV Examination: normal. Prophylactic Antibiotics: The patient does not require prophylactic antibiotics. Prior Anticoagulants: The patient has taken no anticoagulant or antiplatelet agents. ASA Grade Assessment: II - A patient with mild systemic disease. After reviewing the risks and benefits, the patient was deemed in satisfactory condition to undergo the procedure. The anesthesia plan was to use general anesthesia. Immediately prior to administration of medications, the patient was re-assessed for adequacy to receive sedatives. The heart rate, respiratory rate, oxygen saturations, blood pressure, adequacy of pulmonary ventilation, and response to care were monitored throughout the procedure. The physical status of the patient was re-assessed after the procedure. After obtaining informed consent, the scope was passed under direct vision. Throughout the procedure, the patient's blood pressure, pulse, and oxygen saturations were monitored continuously. The Duodenoscope was introduced through the mouth, and advanced to the duodenum and used to inject contrast into the bile duct. The ERCP was accomplished without difficulty. The patient tolerated the procedure well. Scope In: 12:56:56 PM Scope Out: 1:07:38 PM Total Procedure Duration Time 0 hours 10 minutes 42 seconds Findings: The manager school film was normal. The esophagus was successfully intubated under direct vision. The scope was advanced to a normal major papilla in the descending duodenum without detailed examination of the pharynx, larynx and associated structures, and upper GI tract. The upper GI tract was grossly normal. The bile duct was deeply cannulated with the short-nosed traction sphincterotome. Contrast was injected. I personally interpreted the bile duct images. There was brisk flow of contrast through the ducts. Image quality was excellent. Contrast extended to the entire biliary tree. Opacification of the entire biliary tree except for the cystic duct and gallbladder and main bile duct was successful. The maximum diameter of the ducts was 7 mm. The lower third of the main bile duct contained two stones, the largest of which was 6 mm in diameter. The lower third of the main bile duct was diffusely dilated, with a stone causing an obstruction. The largest diameter was 8 mm. Placement of a long 0.025 inch Jagwire into the biliary tree was attempted. This passed successfully. A 5 mm biliary sphincterotomy was made with a braided traction (standard) sphincterotome using ERBE electrocautery. The sphincterotomy oozed blood. To discover objects, the biliary tree was swept with a 12 mm balloon starting at the bifurcation. Sludge was swept from the duct. All stones were removed. One stent was removed from the biliary tree using a snare. Impression: - The lower third of the main bile duct was dilated, with a stone causing an obstruction. - Choledocholithiasis was found. Complete removal was accomplished by biliary sphincterotomy and balloon extraction. - A biliary sphincterotomy was performed. - The biliary tree was swept. - One stent was removed from the biliary tree. Procedure Code(s): --- Professional --- 86727, Endoscopic retrograde cholangiopancreatography (ERCP); with removal of foreign body(s) or stent(s) from biliary/pancreatic duct(s) 34590, Endoscopic retrograde cholangiopancreatography (ERCP); with removal of calculi/debris from biliary/pancreatic duct(s) 19576, Endoscopic retrograde cholangiopancreatography (ERCP); with sphincterotomy/papillotomy 02983, 26, Endoscopic catheterization of the biliary ductal system, radiological supervision and interpretation CPT copyright 2021 [employer]. All rights reserved. The codes documented in this report are preliminary and upon perinatal coordinator review may be revised to meet current compliance requirements. DO Xiomy Smiley/30/2023 1:17:11 PM This report has been signed electronically. Number of Addenda: 0 Note Initiated On: 07/27/2023 12:29 PM
[2023-07-27 13:52] LABS: Bedside Glucose 241 mg/dL (74-106)
== END 2023-07-27 14:50 | disposition home or self-care (01) ==
LOC: EN 10:53 → AC 10:55
PROVIDERS: PCP Student in an Organized Health Care Education/Training Program; Referring Provider Student in an Organized Health Care Education/Training Program; Visit Provider Internal Medicine Gastroenterology
PROC: (CPT 43260; principal; 2023-07-27 11:40)
DX: K80.43 Calculus of bile duct with acute cholecystitis with obstruction (principal); E11.40 Type 2 diabetes mellitus with diabetic neuropathy, unspecified; R74.8 Abnormal levels of other serum enzymes; E87.6 Hypokalemia; I10 Essential (primary) hypertension; E78.00 Pure hypercholesterolemia, unspecified; Z79.899 Other long term (current) drug therapy; Z79.84 Long term (current) use of oral hypoglycemic drugs
CPT/HCPCS: 43275; 43264; 43262; 74328; 76000; 82962; J7120; J2405